=== PATIENT | male | born 1975 | race Caucasian/White ===

== ENCOUNTER 2020-12-03 12:46 | Outpatient (CLI) | payer MEDICARE, SELFPAY ==
--- NOTE | 2020-12-03 13:08 | MR_ITS ---
WS: [id number] MRI RIGHT KNEE HISTORY: PAIN IN RIGHT KNEE COMPARISON: None available. Anterior cruciate ligament: Mild increased signal in the ACL but no tear. Posterior cruciate ligament: Intact. Medial collateral ligament: Intact. Posterior lateral corner structures: Intact. Medial menisci: Horizontal tear extends to the superior articular surface involving the anterior horn . There is an additional more complex tear in the posterior horn involving the free edge and the supe rior articular surface. Tear and intrasubstance degeneration also extends towards the meniscal root. Lateral meniscus: Intact. Normal signal, size and shape. Extensor mechanism: Distal quadriceps tendon and patellar tendons are intact. Fluid and soft tissue: Moderate-sized suprapatellar joint effusion. No Eagle's cyst. Osseous and articular structures: Patellofemoral compartment: Normal. Medial compartment: Mild narrowing of the medial compartment. Fissuring along the weightbearing surfa nori of the cartilage. There is no full-thickness cartilage defect. No marrow edema. Lateral compartment: No significant narrowing. Cartilage is intact. No marrow edema or fracture. MR/MR knee RT wo con* [id number] IMPRESSION: 1. Horizontal tear extends to the superior articular surface anterior horn med ial meniscus. 2. Complex tear posterior horn medial meniscus involves the surfaces of the me niscus and the free edge and extends towards the meniscal root. 3. Moderate suprapatellar effusion. 4. No fracture or marrow edema.
== END 2020-12-03 12:47 | disposition home or self-care (01) ==
LOC: RADSHAW 12:54
PROVIDERS: PCP Family Medicine; Visit Provider Family Medicine
DX: M25.461 Effusion, right knee (principal); S83.231A Complex tear of medial meniscus, current injury, right knee, initial encounter; X58.XXXA Exposure to other specified factors, initial encounter
CPT/HCPCS: 73721

== ENCOUNTER 2022-06-08 09:49 | Inpatient (IN) | payer MEDICARE, SELFPAY ==
[2022-06-08] VITALS (106 sets, daily range): BP systolic 88–128; BP diastolic 58–96; PULSE 53–127; RESP 15–26; TEMP 36.1–36.7; O2SAT 89–97; BMI 24.1
--- NOTE | 2022-06-08 07:53 | XR_ITS ---
WS: [id number] Portable AP upright chest, 06/08/2022, 0807 hours Clinical Data: pna Comparison: Portable chest, today, 0101 hours Findings: No nodules, masses or effusions are seen. The heart is normal. The pulmonary vascularity is not increased. No pneumonia or pneumothorax is seen. There are patchy bilateral pulmonary opacities at both lung bases which probably represent atelectasis but could be pneumonia. The diaphragms are fl attened. The upper lobes are clear. The aortic arch shows tortuosity. There are monitor leads on the chest wall. XR/XR chest 1V portable [id number] Impression: 1. Patchy bilateral basilar pulmonary opacities which could represent atelectas is and/or pneumonia. 2. Hyperinflation
[2022-06-08] MEDS: morphine 4 mg/mL SDV 1 mL 2 MG IVP (08:43)
[2022-06-08] MEDS: FUROsemide 10 mg/mL SDV 10mL 60 MG IVP (08:43)
[2022-06-08 09:12] LABS: Hematocrit 43.2 % (42.0-52.0); Lymphocytes # 0.3 10^3/uL (0.8-4.8); Mean Corpuscular HGB Conc 32.4 g/dL (30.0-36.0); Mean Corpuscular Hemoglobin 29.8 pg (28.0-34.0); Mean Corpuscular Volume 91.9 fl (80-94); Mean Platelet Volume 9.7 fL (7.4-10.4); Monocytes # 0.1 10^3/uL (0.2-0.9); Monocytes % 1.9 %; Neutrophils # 5.25 10^3/uL (1.8-7.7); Neutrophils % 91.9 %; Nucleated Red Blood Cells % 0 %; Platelet Count 262 10^3/cmm (130-400); Red Cell Distribution Width 12.5 % (12.1-15.1); White Blood Count 5.7 10^3/uL (4.0-10.0)
[2022-06-08 09:24] LABS: Add Urine Microscopic? NO; Charge for UA Resulting for Rev
[2022-06-08 09:28] LABS: D Dimer 0.37 ug/mIFEU (0-0.59)
[2022-06-08] MEDS: budesonide 0.5 mg/2 mL Neb INHALATION ×2 (09:31→20:48)
[2022-06-08] MEDS: ipratropium-albuterol 3 mL Neb INHALATION ×2 (09:31→14:53)
[2022-06-08] MEDS: famotidine 20 mg/2 mL INJ IVP ×2 (09:41→19:58)
[2022-06-08] MEDS: ferrous gluconate 324 mg Tablet PO ×2 (09:41→17:16)
[2022-06-08] MEDS: benzonatate 100 mg Capsule PO ×3 (09:41→20:04)
[2022-06-08 09:42] LABS: Alanine Aminotransferase 331 U/L (0-41); Albumin Level 4.1 g/dL (3.5-5.2); Alkaline Phosphatase 66 U/L (40-130); Anion Gap 13.7 (5-19); Aspartate Amino Transferase 241 U/L (0-40); Blood Urea Nitrogen 14 mg/dL (6-20); Calcium 8.6 mg/dL (8.5-10.5); Carbon Dioxide 28 mmol/L (22-29); Chloride 98 mmol/L (98-107); Globulin 2.5 g/dL (1.3-4.6); Glomerular Filtration Rate 119.9 mL/min (90-130); Glucose 121 mg/dL (65-115); Iron 25 ug/dL (59-158); Osmolality Calculated 282 mOsm/kg (285-295); Percent Saturation 8.8 % (20-50); Potassium 4.7 mmol/L (3.5-5.1); Sodium 135 mmol/L (136-145); Total Bilirubin 0.3 mg/dL (0.15-1.2); Total Iron Binding Capacity 281 mcg/dl; Total Protein 6.6 g/dL (6.6-8.7); Unsaturated Iron Binding 256 ug/dL (112-347)
[2022-06-08 09:44] LABS: Procalcitonin 0.08 ng/mL (0-0.5)
[2022-06-08 09:48] LABS: Amphetamines Screen Urine Negative (Negative); Barbiturates Screen Urine Negative (Negative); Benzodiazepines Screen Urine Negative (Negative); Cocaine Screen Urine Negative (Negative); Opiate Screen Urine Positive (Negative); PCP Screen Urine Negative (Negative); THC Screen Urine Negative (Negative)
[2022-06-08 09:51] LABS: Bilirubin Urine Neg (Negative); Blood Urine Neg (Negative); Glucose Urine UA Norm (Normal); Ketones Urine 1+ (Negative); Leukocyte Esterase Urine Negative (Negative); Nitrate Urine Negative (Negative); Protein Urine Neg (Negative); Urine Appearance Clear (CLEAR); Urine Color Straw (Yellow); Urobilinogen Urine Norm (Negative); pH Urine 6 (5-7)
--- NOTE | 2022-06-08 09:53 | USCV_ITS ---
BarrettSachin wall Age: 47 Gender: M : 1975 Exam Date: 06/08/2022 10:08 Ordering Phys: Brendan King MD Technologist: Black Rocha [place] [facility] [place]: Congestive heart failure BP: 132 / 75 HR: Rhythm: Sinus Technical Quality: Technically difficult study MEASUREMENTS (Male / Female) Normal Values 2D ECHO IVC Diameter 0.6 cm M-MODE MV E Point Septal Separation 1.2 cm DOPPLER TR Peak Velocity 146.0 cm/s TR Peak Gradient 8.5 mmHg TV Peak E Velocity 84.0 cm/s Right Atrial Pressure 3.0 mmHg Pulmonary Artery Systolic Pressu 11.5 mmHg RV Acceleration Time 0.2 s FINDINGS Left Ventricle Normal left ventricular cavity size. Normal left ventricular systolic function. Left ankle ejection fraction grossly estimated at 55%. This study is inadequate for estimation of regional wall motion abnormality. Right Ventricle Probably normal right ventricular size and systolic function. Right Atrium Normal right atrial size. Left Atrium Left atrium not well visualized. Mitral Valve Grossly normal mitral valve. Aortic Valve Aortic valve not well visualized. Tricuspid Valve Structurally normal tricuspid valve. Pulmonic Valve Pulmonic valve not well visualized. Pericardium No pericardial effusion. Aorta Aorta not well visualized. IVC Inferior vena cava not visualized. CONCLUSIONS 1. This is a technically difficult study with no apical and very limited parasternal windows. 2. Normal left ventricular cavity size. Normal left ventricular systolic function. Left ankle ejection fraction grossly estimated at 55%. This study is inadequate for estimation of regional wall motion abnormality. 3. No prior similar studies to compare. Gabbie Moran MD (Electronically Signed) Final Date: 08 June 2022 16:16 S
--- NOTE | 2022-06-08 09:54 | PM.HP ---
Providers/Chief Complaint Admitting Physician: Pipe Jonas MD Primary Care Provider: Sachin Brown DO Chief Complaint: flu A , lung disease with hypoxia History of Present Illness Sachin Hyde is a 47 year old male with past medical history of chronic chemical pneumonitis leading to severe lung injury, COPD on 1 to 2 L at home, possible history of congestive heart failure though not documented in chart, history of stable angina pectoris who follows up with pulmonology as an outpatient was transferred from [facility] where he had presented for difficulty in breathing ongoing for last 2 days. As per the patient he went to [facility] on Enrique night because of difficulty in breathing and was sent home on nebulization treatment. As his breathing continued to get worse he went back to the ER yesterday. Patient has been getting out of bed gradually for the last 3 to 4 days. At baseline lives on 1 to 2 L of oxygen supplementation with saturation mostly in low to mid 90s. At [facility] patient was found to be fluid positive. He underwent CTA which ruled out pulmonary embolism. Blood work showed CBC and BMP at baseline. On examination patient was on 5 L nasal cannula, tachypneic, complaining of difficulty in breathing, tired appearing with blood pressures and mean more than 65. Edwards was placed and patient received IV Lasix after which he has had around 2 L of urine output. Review of Systems General: Reports: 10 or more systems reviewed and unremarkable except in HPI and below Const: Denies: fever(s), chills, body aches, change in appetite, change in weight, malaise, night sweats, diaphoresis, change in sleep pattern, daytime sleepiness or snoring Eyes: Denies: change in vision, blurry vision, photophobia, eye discomfort or eye discharge ENMT: Denies: throat pain, enlarged tonsils, hoarseness, mouth pain, oral sores, dry mouth, tinnitus, nasal congestion or post nasal drip Card: Denies: chest pain, palpitations, irregular heart rhythm, edema, swelling of feet/ankles, lightheadedness, syncope, pre-syncope, dyspnea on exertion, orthopnea, leg pain with exertion or acrocyanosis Resp: Denies: dyspnea, productive cough, non-productive cough, wheezing, stridor, pain on inspiration, change in phlegm color, hemoptysis or chest congestion GI: Denies: abdominal pain, nausea, vomiting, hematemesis, coffee ground emesis, dysphagia, heartburn, diarrhea, constipation, bloating, GI cramping, change in bowel habits, pain on defecation, hematochezia or melena : Denies: flank pain, difficulty urinating, dysuria, urinary frequency, urinary urgency, urinary hesitancy, urinary dribbling, difficulty starting urination, change in urine stream, nocturia or hematuria Musc: Denies: neck pain, back pain, extremity pain, joint pain, joint swelling, joint redness, joint stiffness or limited range of motion Neuro: Denies: headache(s), numbness in extremities, weakness in extremities, sensory changes, lack of coordination, difficulty walking, frequent falls, dizziness, vertigo, confusion, Slurred speech present, difficulty communicating thoughts or seizure-like activity Psych: Denies: anxiety, depression, mood swings, panic attacks, hopelessness or irritability Endo: Denies: polyuria, polydipsia, tired all the time, cold intolerance, excessive sweating, flushing or heat intolerance Luis Eduardo/Lymph: Denies: easy bruising or easy bleeding All/Imm: Denies: tongue swelling, facial swelling or acute wheezing Medications/Allergies Home Medications Medication Instructions Recorded Confirmed Last Taken Type nitroglycerin 0.4 mg sublingual 0.4 mg sublingual Q5M PRN Chest 09/13/19 06/08/22 Unknown History tablet Pain prednisone 5 mg tablet 5 mg PO DAILY 30 days #30 tabs 12/09/21 06/08/22 Unknown Rx tiotropium bromide 18 mcg capsule 1 cap inhalation DAILY 30 days #60 12/09/21 06/08/22 Unknown Rx with inhalation device (Spiriva inhalations with HandiHaler) albuterol sulfate 90 mcg/actuation 2 puff inhalation Q6H PRN 06/08/22 06/08/22 Unknown History aerosol inhaler Shortness Of Breath citalopram 20 mg tablet 20 mg PO DAILY 06/08/22 06/08/22 Unknown History roflumilast 500 mcg tablet 500 mcg PO DAILY 06/08/22 06/08/22 Unknown History Allergies Allergy/AdvReac Type Severity Reaction Status Date / Time No Known Allergies Allergy Verified 02/20/22 09:43 PFSH Acute PFSH: Medical History (Updated 12/27/22 @ 09:55 by Brendan King MD) Angina at rest Angina pectoris, unspecified Anxiety CAD (coronary artery disease) Centrilobular emphysema Chest pain Chronic chemical pneumonitis COPD (chronic obstructive pulmonary disease) Depression Diastolic dysfunction GERD (gastroesophageal reflux disease) H/O coronary angiogram HTN (hypertension) Hyperlipidemia Hypoxia Migraines RAJNI (obstructive sleep apnea) Seasonal allergies Syndrome X (cardiac) Family History Father , Age 62 Cancer Social History Smoking and tobacco status: former smoker Quit status (tobacco): has quit using tobacco Year quit tobacco: 2011 - 0.5 PPD x 6 Years Alcohol intake: current Alcohol intake frequency: holidays/special occasions only Lives independently: Yes Household members: spouse Marital status: Current occupational status: disabled Current occupational exposures/hazards: No 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 History of recent travel: No Current gender identity: Male Vitals/I&O/Wt Last Vital Signs Pulse 96 06/08/22 09:42 Resp 22 H 06/08/22 09:42 Pulse Ox 91 06/08/22 09:42 O2 Del Method 06/08/22 09:42 O2 Flow Rate 5 06/08/22 09:42 Weight last 48 hrs Weight 80.739 kg Physical Exam Narrative: General: In acute distress because of difficulty in breathing, tachypnea, using accessory muscles on 5 L nasal cannula, chronically sick appearing HEENT: PERRLA, pupils bilaterally equal and reactive Chest: Bronchial breath sounds b/l ,decreased air entry, with diffuse rhonchi all over the lung gary CVS: S1-S2 regular, no murmurs, no tachycardia, no gallops, no rubs Abdomen: Soft, nontender, no organomegaly, bowel sounds present, morbidly obese Neuro: No focal deficits, no facial deformity, AO x3, power 5/5 in all limbs Urinary Catheter Management: Edwards: Cath Placed During This Visit: yes Urinary Catheter Date of Insertion: 06/08/22 Urinary Catheter Time of Insertion: 09:20 Data 06/08/22 08:43 06/08/22 08:43 Micro: Microbiology 06/08/22 08:43 Blood Culture - Preliminary Blood SPECIMEN COLLECTED 06/08/22 08:43 Blood Culture - Preliminary Blood SPECIMEN COLLECTED A&P Assessment and plan (1) Acute and chronic respiratory failure with hypoxia: Secondary to COPD exacerbation in setting of influenza A in a patient with history of chronic chemical pneumonitis. Chest x-ray. Patient did have CT done in [facility] which ruled out PE. Check sputum culture, blood culture, procalcitonin, MRSA swab, urine Legionella, bacterial antigen. DuoNebs every 6 hour, budesonide twice daily. Solu-Medrol 60 mg IV every 6 hourly. 1 dose of IV mag 2 mg. Switch to high flow nasal cannula to reduce work of breathing. Patient gives history of possible congestive heart failure. Check echocardiogram. IV Lasix 40 mg one-time. Edwards catheter, strict input output charting, daily weights. Cannot rule out superimposed bacterial pneumonia. For now start patient on IV ceftriaxone and oral azithromycin. If MRSA comes back positive we will add vancomycin. (2) COPD (chronic obstructive pulmonary disease): (3) Influenza A: Aggressive pulmonary toilet. Incentive spirometry, flutter valve. Tamiflu 75 mg twice daily. (4) Chronic chemical pneumonitis: (5) CAD (coronary artery disease): Qualifiers: Associated angina: with unspecified form of angina Coronary Disease-Associated Artery/Lesion type: unspecified vessel or lesion type [place] vs. transplanted heart: [place] heart Qualified Code(s): I25.119 - Atherosclerotic heart disease of [place] coronary artery with unspecified angina pectoris (6) Anxiety: Morphine 1 mg every 2 hour as needed. Xanax 0.5 mg twice daily. We will try to hold off on adding any further anxiolytics or Precedex to avoid decreasing respiratory drive. Plan Code status: Discussed in detail with the patient. Discussed that given her severe lung injury unfortunately if patient ends up on ventilator it will be difficult for him to get off ventilator. Patient verbalized understanding. Full code. Protonix for PUD prophylaxis Lovenox for DVT prophylaxis. Critically sick. High risk for intubation. Attestations Medical Necessity Statement*: Admission for more than 2 midnights for management of acute on chronic hypoxic respiratory failure in setting of COPD exacerbation from fluid air in a patient with baseline chemical pneumonitis Critical Care Time: The high probability of a clinically significant, sudden or life threatening deterioration of the patient's [pulmonary] system(s) required my full and direct attention, intervention and personal management. The critical care time is as shown. 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 transplanted heart: [place] heart Anxiety F41.9
[2022-06-08 10:00] LABS: C Reactive Protein 24.2 mg/L (0.0-4.9); NT Pro B Type Natriuretic Pept 40 pg/mL (0-125); Thyroid Stimulating Hormone 0.28 uIU/mL (0.27-4.20); Vitamin B12 1107 pg/mL (232-1245)
[2022-06-08 10:00] LABS: Potassium, Radom Urine 15 mmol/L; Urine Random Chloride 110 mmol/L; Urine Random Sodium 106 mmol/L
[2022-06-08 10:25] LABS: Folate Level > 20.0 ng/mL (4.5-32.2)
[2022-06-08] MEDS: oseltamivir phosphate 75 mg Capsule PO ×2 (10:34→17:16)
[2022-06-08] MEDS: azithromycin 250 mg Tablet 500 MG PO (10:34)
[2022-06-08] MEDS: enoxaparin 40 mg/0.4 mL Syringe SUBCUT (10:35)
[2022-06-08] MEDS: cefTRIAXone 1,000 MG in sodium chloride 0.9% (plus) 50 ML 100 MG IV (10:35)
[2022-06-08] MEDS: magnesium sulfate premix 2 GM/50 ML PIGGYBACK IV (10:37)
--- NOTE | 2022-06-08 10:49 | PC.CHAP ---
Pastoral Care Encounter/Spiritual Assessment Type of Contact [] Declined earth science technical officer visit [] Patient/Family/Request visit [] Outpatient visit [] Follow-up visit [] Physician referral [] Code/Alert [x] Routine visit [] Staff referral [] Actively dying [] Patient sleeping [] Family support [] [] Out of room [] Palliative care [] [x] Receiving care in room [] Pre-surgical visit [] Trauma [] Long length of stay [x] ICU visit [] Other: Relational/Emotional Strength [] Patient feels connected with others/family/visitors/staff [] Distress [] Loneliness/isolation [] Abandonment Spirituality of Patient [] Person of Deidre [] Attends Zoroastrian of their [place] [] Believes in Prayer [] Reads Bible or Mosque materials [] There are Spiritual issues to be addressed Mold Swabber Interventions [x] Prayer [] Active listening [] Non-anxious presence [] Spiritual/emotional support [] Crisis/trauma care [] Spiritual counseling [] Bereavement support [] Provided bereavement packet [] Provided Bible/devotional materials [] Provided toy/stuffed animal, coloring book to patient or family member [] Provided Communion [] Anointing/[place] [] Salvation [x] Completed spiritual assessment [] Other: Impact on Illness or Injury [] Angry [] Fearful [] Anxious [] Often cries [] Exhaustion [] Unable to work [] Unable to attend denominational [] Unable to walk/stand [] Unable to read [] Unable to drive [] Unable to eat/drink [] Unable to sleep [] Unable to be with family [] Patient intubated [] Other: Summary Time spent with patient
[2022-06-08] MEDS: ALPRAZolam 0.5 mg Tablet PO ×2 (13:45→20:32)
[2022-06-08] MEDS: morphine 4 mg/mL SDV 1 mL 1 MG IVP ×3 (13:45→20:33)
[2022-06-08 14:35] LABS: Anion Gap 18.5 (5-19); Blood Urea Nitrogen 14 mg/dL (6-20); Calcium 8.7 mg/dL (8.5-10.5); Carbon Dioxide 28 mmol/L (22-29); Chloride 92 mmol/L (98-107); Glomerular Filtration Rate 119.9 mL/min (90-130); Glucose 124 mg/dL (65-115); Osmolality Calculated 280 mOsm/kg (285-295); Potassium 4.5 mmol/L (3.5-5.1); Sodium 134 mmol/L (136-145)
[2022-06-08] MEDS: ondansetron 2 mg/ML SDV 2 mL 4 MG IVP (15:25)
[2022-06-08] MEDS: docusate sodium 100 mg Capsule PO (17:16)
[2022-06-08] MEDS: ipratropium 0.5 mg/2.5 mL Neb INHALATION ×2 (20:47→23:33)
[2022-06-08] MEDS: levalbuterol 0.63 mg/3 mL Neb INHALATION ×2 (20:48→23:33)
[2022-06-09] VITALS (89 sets, daily range): BP systolic 62–133; BP diastolic 36–85; PULSE 52–93; RESP 14–27; TEMP 36.6; O2SAT 89–97
[2022-06-09] MEDS: morphine 4 mg/mL SDV 1 mL 1 MG IVP ×4 (00:08→21:06)
[2022-06-09 03:17] LABS: Estmated Average Glucose 105; Hemoglobin A1C 5.3 % (4.0-6.0)
[2022-06-09 03:25] LABS: Cholesterol 186 mg/dL (0-200); HDL Cholesterol 62 mg/dL (60-100); LDL Cholesterol Calculated 113 mg/dL (50-129); Magnesium 2.5 mg/dL (1.7-2.3); Phosphorus 4.5 mg/dL (2.5-4.5); Triglycerides 57 mg/dL (0-150); VLDL Cholestrol Calculation 11 mg/dL (0-30)
[2022-06-09] MEDS: ipratropium 0.5 mg/2.5 mL Neb INHALATION ×6 (04:23→23:50)
[2022-06-09] MEDS: levalbuterol 0.63 mg/3 mL Neb INHALATION ×6 (04:23→23:50)
--- NOTE | 2022-06-09 05:13 | PC.NURSE ---
Shift Note Frequent safety and comfort rounds continue. Orders and/or nursing care completed as indicated. Patient monitored for response to intervention and treatment(s). Education provided includes medications. Patient verbalized understanding of teaching. Patient had an uneventful shift, remains alert/oriented x4 on 5LNC. No wounds or skin issues noted at this time. Patient reported pain overnight-PRN medication administered please see MAR for detail. Edwards catheter drained 1000 mls of urine overnight. Will continue to monitor.
[2022-06-09] MEDS: roflumilast 500 mcg Tablet PO (08:00)
[2022-06-09] MEDS: azithromycin 250 mg Tablet 500 MG PO (08:00)
[2022-06-09] MEDS: benzonatate 100 mg Capsule PO ×3 (08:01→21:06)
[2022-06-09] MEDS: citalopram 20 mg Tablet PO (08:01)
[2022-06-09] MEDS: oseltamivir phosphate 75 mg Capsule PO ×2 (08:01→17:32)
[2022-06-09] MEDS: famotidine 20 mg/2 mL INJ IVP ×2 (08:02→21:04)
[2022-06-09] MEDS: ferrous gluconate 324 mg Tablet PO ×2 (08:02→17:32)
[2022-06-09] MEDS: ondansetron 2 mg/ML SDV 2 mL 4 MG IVP (08:46)
[2022-06-09] MEDS: budesonide 0.5 mg/2 mL Neb INHALATION ×2 (09:04→19:39)
[2022-06-09] MEDS: ALPRAZolam 0.5 mg Tablet PO (09:31)
[2022-06-09] MEDS: cefTRIAXone 1,000 MG in sodium chloride 0.9% (plus) 50 ML 100 MG IV (10:00)
[2022-06-09] MEDS: enoxaparin 40 mg/0.4 mL Syringe SUBCUT (10:00)
--- NOTE | 2022-06-09 10:06 | PC.CHAP ---
Pastoral Care Encounter/Spiritual Assessment Type of Contact [] Declined paver operator visit [] Patient/Family/Request visit [] Outpatient visit [] Follow-up visit [] Physician referral [] Code/Alert [x] Routine visit [] Staff referral [] Actively dying [] Patient sleeping [] Family support [] [] Out of room [] Palliative care [] [x] Receiving care in room [] Pre-surgical visit [] Trauma [] Long length of stay [x] ICU visit [xOther: setting up in bed Relational/Emotional Strength [] Patient feels connected with others/family/visitors/staff [] Distress [] Loneliness/isolation [] Abandonment Spirituality of Patient [] Person of Deidre [] Attends Christian of their [place] [] Believes in Prayer [] Reads Bible or Gnosticist materials [] There are Spiritual issues to be addressed Aircraft Maintenance Supervisor Interventions [x] Prayer [] Active listening [] Non-anxious presence [] Spiritual/emotional support [] Crisis/trauma care [] Spiritual counseling [] Bereavement support [] Provided bereavement packet [] Provided Bible/devotional materials [] Provided toy/stuffed animal, coloring book to patient or family member [] Provided Communion [] Anointing/[place] [] Salvation [x] Completed spiritual assessment [] Other: Impact on Illness or Injury [] Angry [] Fearful [] Anxious [] Often cries [] Exhaustion [] Unable to work [] Unable to attend scientology [] Unable to walk/stand [] Unable to read [] Unable to drive [] Unable to eat/drink [] Unable to sleep [] Unable to be with family [] Patient intubated [] Other: Summary Time spent with patient
--- NOTE | 2022-06-09 17:27 | PM.PN ---
Subjective Subjective: No complaints overnight. Today morning patient states he is feeling slightly better than yesterday. Seen with family at bedside. Denies any nausea, vomiting, headache. On examination early in the morning was on 4 L being weaned down to 2 L a day maintaining saturation more than 90%. Vitals/I&O/Wt Last Vital Signs Temp 97.0 F L 06/08/22 20:00 Pulse 58 L 06/09/22 17:00 Resp 14 06/09/22 17:00 BP 88/41 06/09/22 17:00 Pulse Ox 92 06/09/22 17:00 O2 Del Method 06/09/22 15:00 O2 Flow Rate 2 06/09/22 15:00 06/09/22 06/09/22 06/09/22 06:59 14:59 22:59 Intake Total 1150 / 1600 240 / 240 Output Total 750 / 4850 350 / 350 Balance 400 / -3250 -110 / -110 Weight last 48 hrs Weight 80.739 kg Physical Exam Narrative: General: Chronically sick appearing, no acute distress, less tachypneic today, pleasant, AOx3 HEENT: PERRLA, pupils bilaterally equal and reactive Chest: Bronchial breath sounds b/l ,decreased air entry, with diffuse rhonchi all over the lung gary CVS: S1-S2 regular, no murmurs, no tachycardia, no gallops, no rubs Abdomen: Soft, nontender, no organomegaly, bowel sounds present, morbidly obese Neuro: No focal deficits, no facial deformity, AO x3, power 5/5 in all limbs Urinary Catheter Management: Edwards: Cath Placed During This Visit: yes Reason for Continuing Indwelling Catheter: Accurate Measurement of Urinary Output in Critically Ill Patients Urinary Catheter Date of Insertion: 06/08/22 Urinary Catheter Time of Insertion: 09:20 Data 06/08/22 08:43 06/08/22 14:00 Micro: Microbiology 06/08/22 09:20 MRSA Culture - Final Nose 06/08/22 08:43 Blood Culture - Preliminary Blood NEGATIVE TO DATE 06/08/22 08:43 Blood Culture - Preliminary Blood NEGATIVE TO DATE A&P Assessment and plan (1) Acute and chronic respiratory failure with hypoxia: Secondary to COPD exacerbation in setting of influenza A in a patient with history of chronic chemical pneumonitis. CTA done in [facility] which ruled out PE. Urine Legionella, bacterial antigen, MRSA swab negative. Sputum culture pending. Continue with ipratropium, Xopenex every 4 hours, budesonide twice daily. Solu-Medrol 60 mg IV every 6 hourly. Will start weaning with a last 24 hours depending on clinical picture. Switch to high flow nasal cannula to reduce work of breathing. Echocardiogram results appreciated. EF of 50 to 55% without diastolic dysfunction. DC Edwards. Cannot rule out superimposed bacterial pneumonia. For now start patient on IV ceftriaxone and oral azithromycin. (2) COPD (chronic obstructive pulmonary disease): (3) Influenza A: Aggressive pulmonary toilet. Incentive spirometry, flutter valve. Tamiflu 75 mg twice daily. (4) Chronic chemical pneumonitis: (5) CAD (coronary artery disease): Appreciate A1c and lipid panel. Qualifiers: Coronary Disease-Associated Artery/Lesion type: unspecified vessel or lesion type [place] vs. transplanted heart: [place] heart Associated angina: with unspecified form of angina Qualified Code(s): I25.119 - Atherosclerotic heart disease of [place] coronary artery with unspecified angina pectoris (6) Anxiety: Morphine 1 mg every 2 hour as needed. Xanax 0.5 mg twice daily. We will try to hold off on adding any further anxiolytics or Precedex to avoid decreasing respiratory drive. Plan Code status: Discussed in detail with the patient. Discussed that given her severe lung injury unfortunately if patient ends up on ventilator it will be difficult for him to get off ventilator. Patient verbalized understanding. Full code. Protonix for PUD prophylaxis Lovenox for DVT prophylaxis. Critically sick. 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 transplanted heart: [place] heart Associated angina: with unspecified form of angina Anxiety F41.9
[2022-06-09] MEDS: guaiFENesin 600 mg Tablet PO (17:42)
[2022-06-10] VITALS (18 sets, daily range): BP systolic 95–117; BP diastolic 57–87; PULSE 54–85; RESP 15–28; TEMP 36.4–36.5; O2SAT 90–96
[2022-06-10 02:24] LABS: Hematocrit 41.9 % (42.0-52.0); Hemoglobin 14.1 g/dL (11.7-16.6); Mean Corpuscular HGB Conc 33.7 g/dL (30.0-36.0); Mean Corpuscular Hemoglobin 30.1 pg (28.0-34.0); Mean Corpuscular Volume 89.5 fl (80-94); Mean Platelet Volume 9.9 fL (7.4-10.4); Platelet Count 302 10^3/cmm (130-400); Red Blood Count 4.68 10^6/uL (4.1-5.3); Red Cell Distribution Width 12.1 % (12.1-15.1); White Blood Count 7.9 10^3/uL (4.0-10.0)
[2022-06-10 02:36] LABS: Alanine Aminotransferase 192 U/L (0-41); Albumin Level 4.2 g/dL (3.5-5.2); Alkaline Phosphatase 56 U/L (40-130); Anion Gap 13.2 (5-19); Aspartate Amino Transferase 61 U/L (0-40); Blood Urea Nitrogen 25 mg/dL (6-20); Calcium 8.8 mg/dL (8.5-10.5); Carbon Dioxide 32 mmol/L (22-29); Chloride 95 mmol/L (98-107); Globulin 2.2 g/dL (1.3-4.6); Glomerular Filtration Rate 102.7 mL/min (90-130); Glucose 132 mg/dL (65-115); Osmolality Calculated 286 mOsm/kg (285-295); Potassium 5.2 mmol/L (3.5-5.1); Sodium 135 mmol/L (136-145); Total Bilirubin 0.4 mg/dL (0.15-1.2); Total Protein 6.4 g/dL (6.6-8.7)
[2022-06-10 03:27] LABS: Absolute Segmented Neutrophil 6.2 10/cmm (1.6-7.1); Eosinophils 0 %; Lymphocytes 12 %; Lymphocytes Absolute 1.3 10^3/cmm (1.2-3.4); Monocytes Absolute 0.4 10^3/cmm (0.1-0.6); Segmented Neutrophils 79 %; Total Cells Counted 100 (0-100)
[2022-06-10 03:28] LABS: Absolute Neutrophil 6.2 10^3/cmm (1.4-6.5); Platelet Estimate Normal (Normal)
[2022-06-10] MEDS: morphine 4 mg/mL SDV 1 mL 1 MG IVP ×3 (04:16→21:41)
[2022-06-10] MEDS: ipratropium 0.5 mg/2.5 mL Neb INHALATION ×4 (04:43→23:44)
[2022-06-10] MEDS: levalbuterol 0.63 mg/3 mL Neb INHALATION ×4 (04:43→23:45)
[2022-06-10] MEDS: azithromycin 250 mg Tablet 500 MG PO (07:58)
[2022-06-10] MEDS: guaiFENesin 600 mg Tablet PO ×2 (07:58→17:12)
[2022-06-10] MEDS: oseltamivir phosphate 75 mg Capsule PO ×2 (07:58→17:12)
[2022-06-10] MEDS: benzonatate 100 mg Capsule PO ×3 (07:59→19:57)
[2022-06-10] MEDS: citalopram 20 mg Tablet PO (07:59)
[2022-06-10] MEDS: roflumilast 500 mcg Tablet PO (07:59)
[2022-06-10] MEDS: ferrous gluconate 324 mg Tablet PO ×2 (07:59→17:12)
[2022-06-10] MEDS: docusate sodium 100 mg Capsule PO ×2 (07:59→17:12)
[2022-06-10] MEDS: famotidine 20 mg/2 mL INJ IVP ×2 (08:00→19:51)
[2022-06-10] MEDS: budesonide 0.5 mg/2 mL Neb INHALATION ×2 (08:25→19:46)
[2022-06-10] MEDS: ALPRAZolam 0.5 mg Tablet PO ×2 (09:11→19:55)
[2022-06-10] MEDS: ondansetron 2 mg/ML SDV 2 mL 4 MG IVP (09:44)
[2022-06-10] MEDS: enoxaparin 40 mg/0.4 mL Syringe SUBCUT (11:06)
[2022-06-10] MEDS: cefTRIAXone 1,000 MG in sodium chloride 0.9% (plus) 50 ML 100 MG IV (11:06)
[2022-06-10 11:44] LABS: Anion Gap 13.5 (5-19); Blood Urea Nitrogen 24 mg/dL (6-20); Calcium 9.1 mg/dL (8.5-10.5); Carbon Dioxide 33 mmol/L (22-29); Chloride 93 mmol/L (98-107); Glomerular Filtration Rate 102.7 mL/min (90-130); Glucose 133 mg/dL (65-115); Osmolality Calculated 286 mOsm/kg (285-295); Potassium 4.5 mmol/L (3.5-5.1); Sodium 135 mmol/L (136-145)
--- NOTE | 2022-06-10 17:58 | P.PN_ITS ---
Subjective Subjective: No acute distress overnight. Patient has remained hemodynamically stable and afebrile. Today morning on examination patient is on 2 L nasal cannula oxygen supplementation. Transiently had to increase up to 4 L after breathing treatment but turned out again during the day. Vitals/I&O/Wt Last Vital Signs Temp 97.7 F 06/10/22 04:20 Pulse 74 06/10/22 17:07 Resp 15 06/10/22 17:07 BP 99/57 06/10/22 17:07 Pulse Ox 93 06/10/22 17:07 O2 Del Method 06/10/22 15:41 O2 Flow Rate 2 06/10/22 15:41 06/10/22 06/10/22 06/10/22 06:59 14:59 22:59 Intake Total 120 / 120 Output Total 400 / 400 Balance -280 / -280 Weight last 48 hrs Weight 76.799 kg Physical Exam Narrative: General: Chronically sick appearing, no acute distress, less tachypneic today, pleasant, AOx3 HEENT: PERRLA, pupils bilaterally equal and reactive Chest: Bronchial breath sounds b/l ,decreased air entry, with diffuse rhonchi all over the lung gary CVS: S1-S2 regular, no murmurs, no tachycardia, no gallops, no rubs Abdomen: Soft, nontender, no organomegaly, bowel sounds present, morbidly obese Neuro: No focal deficits, no facial deformity, AO x3, power 5/5 in all limbs Urinary Catheter Management: Edwards: Cath Placed During This Visit: yes, but has since been removed by the nurse Reason for Continuing Indwelling Catheter: Accurate Measurement of Urinary Output in Critically Ill Patients Urinary Catheter Date of Insertion: 06/08/22 Urinary Catheter Time of Insertion: 09:20 Date Urinary Catheter Removed: 06/09/22 Time Urinary Catheter Discontinued: 15:00 Data 06/10/22 01:44 06/10/22 11:22 Micro: Microbiology 06/08/22 09:20 MRSA Culture - Final Nose A&P Assessment and plan (1) Acute and chronic respiratory failure with hypoxia: Secondary to COPD exacerbation in setting of influenza A in a patient with history of chronic chemical pneumonitis. CTA done in [facility] which ruled out PE. Urine Legionella, bacterial antigen, MRSA swab negative. Sputum culture pen ding. Continue with ipratropium, Xopenex every 4 hours, budesonide twice daily. Solu-Medrol 60 mg IV every 6 hourly. Will start weaning with a last 24 hours depending on clinical picture. Switch to high flow nasal cannula to reduce work of breathing. Echocardiogram results appreciated. EF of 50 to 55% without diastolic dysfunction. BIB Edwards. Cannot rule out superimposed bacterial pneumonia. For now start patient on IV ceftriaxone and oral azithromycin. (2) COPD (chronic obstructive pulmonary disease): (3) Influenza A: Aggressive pulmonary toilet. Incentive spirometry, flutter valve. Tamiflu 75 mg twice daily. (4) Chronic chemical pneumonitis: (5) CAD (coronary artery disease): Appreciate A1c and lipid panel. Qualifiers: Coronary Disease-Associated Artery/Lesion type: unspecified vessel or lesion type [place] vs. transplanted heart: [place] heart Associated angina: with unspecified form of angina Qualified Code(s): I25.119 - Atherosclerotic heart disease of [place] coronary artery with unspecified angina pectoris (6) Anxiety: Morphine 1 mg every 2 hour as needed. Xanax 0.5 mg twice daily. We will try to hold off on adding any further anxiolytics or Precedex to avoid decreasing respiratory drive. Plan Code status: Discussed in detail with the patient. Discussed that given her severe lung injury unfortunately if patient ends up on ventilator it will be difficult for him to get off ventilator. Patient verbalized understanding. Full code. Protonix for PUD prophylaxis Lovenox for DVT prophylaxis. Critically sick. Plan for the day: Continue with nebulization treatment with IV antibiotics. Wean down Solu-Medrol to 60 mg every 8 hourly. We will continue to wean within next 24 hours. Follow-up blood culture. Sputum culture still pending. Transfer out of ICU to [facility]. Out of bed to chair. Continue mechanical soft diet. 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 transplanted heart: [place] heart Associated angina: with unspecified form of angina Anxiety F41.9
[2022-06-10 19:49] LABS: Glucose Point of Care 120 mg/dL (70-110)
[2022-06-11] VITALS (15 sets, daily range): BP systolic 100–114; BP diastolic 62–65; PULSE 53–73; RESP 15–19; TEMP 36.4–36.7; O2SAT 93–95; BMI 22.1
[2022-06-11] MEDS: ipratropium 0.5 mg/2.5 mL Neb INHALATION ×5 (04:33→23:48)
[2022-06-11] MEDS: levalbuterol 0.63 mg/3 mL Neb INHALATION ×5 (04:33→23:48)
[2022-06-11] MEDS: morphine 4 mg/mL SDV 1 mL 1 MG IVP ×2 (04:47→21:33)
[2022-06-11 04:49] LABS: Hematocrit 41.9 % (42.0-52.0); Hemoglobin 13.9 g/dL (11.7-16.6); Lymphocytes % 11.3 %; Mean Corpuscular HGB Conc 33.2 g/dL (30.0-36.0); Mean Corpuscular Hemoglobin 29.4 pg (28.0-34.0); Mean Corpuscular Volume 88.8 fl (80-94); Monocytes # 0.4 10^3/uL (0.2-0.9); Monocytes % 4.5 %; Neutrophils # 7.49 10^3/uL (1.8-7.7); Neutrophils % 83.9 %; Nucleated Red Blood Cells % 0 %; Platelet Count 295 10^3/cmm (130-400); Red Blood Count 4.72 10^6/uL (4.1-5.3); Red Cell Distribution Width 11.9 % (12.1-15.1); White Blood Count 8.9 10^3/uL (4.0-10.0)
[2022-06-11 05:19] LABS: Alanine Aminotransferase 128 U/L (0-41); Albumin Level 3.9 g/dL (3.5-5.2); Alkaline Phosphatase 54 U/L (40-130); Anion Gap 10.9 (5-19); Aspartate Amino Transferase 27 U/L (0-40); Blood Urea Nitrogen 29 mg/dL (6-20); Calcium 8.9 mg/dL (8.5-10.5); Carbon Dioxide 32 mmol/L (22-29); Chloride 95 mmol/L (98-107); Glomerular Filtration Rate 119.9 mL/min (90-130); Glucose 125 mg/dL (65-115); Osmolality Calculated 283 mOsm/kg (285-295); Potassium 4.9 mmol/L (3.5-5.1); Sodium 133 mmol/L (136-145); Total Bilirubin 0.5 mg/dL (0.15-1.2); Total Protein 5.9 g/dL (6.6-8.7)
[2022-06-11] MEDS: budesonide 0.5 mg/2 mL Neb INHALATION ×2 (08:25→23:53)
[2022-06-11] MEDS: benzonatate 100 mg Capsule PO ×3 (09:00→21:10)
[2022-06-11] MEDS: azithromycin 250 mg Tablet 500 MG PO (09:00)
[2022-06-11] MEDS: guaiFENesin 600 mg Tablet PO ×2 (09:00→17:13)
[2022-06-11] MEDS: docusate sodium 100 mg Capsule PO ×2 (09:00→17:13)
[2022-06-11] MEDS: oseltamivir phosphate 75 mg Capsule PO ×2 (09:00→17:13)
[2022-06-11] MEDS: roflumilast 500 mcg Tablet PO (09:00)
[2022-06-11] MEDS: citalopram 20 mg Tablet PO (09:00)
[2022-06-11] MEDS: ferrous gluconate 324 mg Tablet PO ×2 (09:00→17:13)
[2022-06-11] MEDS: ALPRAZolam 0.5 mg Tablet PO ×2 (09:01→17:13)
[2022-06-11] MEDS: famotidine 20 mg/2 mL INJ IVP ×2 (09:01→20:04)
[2022-06-11] MEDS: ondansetron 2 mg/ML SDV 2 mL 4 MG IVP ×2 (09:57→15:53)
--- NOTE | 2022-06-11 10:17 | PC.SOCIAL ---
IMM update IMM updated with patient. Verbalized an understanding. Initialled, dated, timed, and placed in chart.
[2022-06-11] MEDS: enoxaparin 40 mg/0.4 mL Syringe SUBCUT (10:51)
[2022-06-11] MEDS: cefTRIAXone 1,000 MG in sodium chloride 0.9% (plus) 50 ML 100 MG IV (10:51)
--- NOTE | 2022-06-11 14:50 | P.PN_ITS ---
Subjective Subjective: No acute events overnight. Patient denies any nausea, vomiting, headache. Today morning examination laying comfortably in bed on 2 L oxygen supplementation. Seen on [facility]. States feeling better but tired. Vitals/I&O/Wt Last Vital Signs Temp 97.9 F 06/11/22 11:51 Pulse 69 06/11/22 11:51 Resp 15 06/11/22 11:51 BP 104/63 06/11/22 11:51 Pulse Ox 95 06/11/22 11:51 O2 Del Method 06/11/22 11:51 O2 Flow Rate 3 06/11/22 11:40 06/10/22 06/11/22 06/11/22 22:59 06:59 14:59 Intake Total 50 / 170 150 / 320 170 / 170 Output Total 650 / 1050 Balance -600 / -880 150 / -730 170 / 170 Weight last 48 hrs Weight 74.021 kg Weight 74.021 kg Weight 76.799 kg Physical Exam Narrative: General: Chronically sick appearing, no acute distress, less tachypneic today, pleasant, AOx3 HEENT: PERRLA, pupils bilaterally equal and reactive Chest: Bronchial breath sounds b/l ,decreased air entry, with diffuse rhonchi all over the lung gary CVS: S1-S2 regular, no murmurs, no tachycardia, no gallops, no rubs Abdomen: Soft, nontender, no organomegaly, bowel sounds present, morbidly obese Neuro: No focal deficits, no facial deformity, AO x3, power 5/5 in all limbs Urinary Catheter Management: Edwards: Cath Placed During This Visit: yes, but has since been removed by the nurse Reason for Continuing Indwelling Catheter: Accurate Measurement of Urinary Output in Critically Ill Patients Urinary Catheter Date of Insertion: 06/08/22 Urinary Catheter Time of Insertion: 09:20 Date Urinary Catheter Removed: 06/09/22 Time Urinary Catheter Discontinued: 15:00 Data 06/11/22 04:16 06/11/22 04:16 A&P Assessment and plan (1) Acute and chronic respiratory failure with hypoxia: Secondary to COPD exacerbation in setting of influenza A in a patient with history of chronic chemical pneumonitis. CTA done in [facility] which ruled out PE. Urine Legionella, bacterial antigen, MRSA swab negative. Sputum culture pending. Continue with ipratropium, Xopenex every 4 hours, budesonide twice daily. Solu-Medrol 60 mg IV every 6 hourly. Will start weaning with a last 24 hours depending on clinical picture. Switch to high flow nasal cannula to reduce work of breathing. Echocardiogram results appreciated. EF of 50 to 55% without diastolic dysfunction. DC Edwards. Cannot rule out superimposed bacterial pneumonia. For now start patient on IV ceftriaxone and oral azithromycin. (2) COPD (chronic obstructive pulmonary disease): (3) Influenza A: Aggressive pulmonary toilet. Incentive spirometry, flutter valve. Tamiflu 75 mg twice daily. (4) Chronic chemical pneumonitis: (5) CAD (coronary artery disease): Appreciate A1c and lipid panel. Qualifiers: Coronary Disease-Associated Artery/Lesion type: unspecified vessel or lesion type [place] vs. transplanted heart: [place] heart Associated angina: with unspecified form of angina Qualified Code(s): I25.119 - Atherosclerotic heart disease of [place] coronary artery with unspecified angina pectoris (6) Anxiety: Morphine 1 mg every 2 hour as needed. Xanax 0.5 mg twice daily. We will try to hold off on adding any further anxiolytics or Precedex to avoid decreasing respiratory drive. Plan Code status: Discussed in detail with the patient. Discussed that given her severe lung injury unfortunately if patient ends up on ventilator it will be difficult for him to get off ventilator. Patient verbalized understanding. Full code. Protonix for PUD prophylaxis Lovenox for DVT prophylaxis. Critically sick. Plan for the day: Continue with nebulization treatment with IV antibiotics. Wean down Solu-Medrol further to 60 mg every 12. Follow-up cultures. Continue mechanical soft diet. Discharge planning: If continues to do well we will plan to discharge within next 24 hours back home on oxygen and oral antibiotics. 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 transplanted heart: [place] heart Associated angina: with unspecified form of angina Anxiety F41.9
[2022-06-12] VITALS (15 sets, daily range): BP systolic 98–111; BP diastolic 58–66; PULSE 53–73; RESP 16–20; TEMP 36.4–36.7; O2SAT 87–97
--- NOTE | 2022-06-12 00:31 | PC.NURSE ---
Nurse notified of last vitals
[2022-06-12] MEDS: ALPRAZolam 0.5 mg Tablet PO ×3 (00:42→20:28)
[2022-06-12] MEDS: budesonide 0.5 mg/2 mL Neb INHALATION (08:20)
[2022-06-12] MEDS: ipratropium 0.5 mg/2.5 mL Neb INHALATION ×3 (08:20→15:31)
[2022-06-12] MEDS: levalbuterol 0.63 mg/3 mL Neb INHALATION ×4 (08:21→16:00)
[2022-06-12] MEDS: famotidine 20 mg/2 mL INJ IVP ×2 (09:44→21:10)
[2022-06-12] MEDS: oseltamivir phosphate 75 mg Capsule PO ×2 (09:44→18:04)
[2022-06-12] MEDS: docusate sodium 100 mg Capsule PO ×2 (09:44→18:04)
[2022-06-12] MEDS: citalopram 20 mg Tablet PO (09:44)
[2022-06-12] MEDS: guaiFENesin 600 mg Tablet PO ×2 (09:44→18:04)
[2022-06-12] MEDS: azithromycin 250 mg Tablet 500 MG PO (09:45)
[2022-06-12] MEDS: benzonatate 100 mg Capsule PO ×3 (09:45→20:28)
[2022-06-12] MEDS: ferrous gluconate 324 mg Tablet PO ×2 (09:45→18:04)
[2022-06-12] MEDS: roflumilast 500 mcg Tablet PO (09:45)
[2022-06-12] MEDS: cefTRIAXone 1,000 MG in sodium chloride 0.9% (plus) 50 ML 100 MG IV (10:59)
[2022-06-12] MEDS: enoxaparin 40 mg/0.4 mL Syringe SUBCUT (10:59)
--- NOTE | 2022-06-12 15:38 | PM.PN ---
Subjective Subjective: No acute events. Doing better. Continue to improve hemoglobin on 3 to 4 L at rest saturating more than 90%. States feeling better. Vitals/I&O/Wt Last Vital Signs Temp 98.1 F 06/12/22 12:00 Pulse 65 06/12/22 15:33 Resp 18 06/12/22 15:33 BP 111/66 06/12/22 12:00 Pulse Ox 94 06/12/22 15:33 O2 Del Method 06/12/22 15:33 O2 Flow Rate 4 06/12/22 15:33 06/12/22 06/12/22 06/12/22 06:59 14:59 22:59 Intake Total 240 / 770 360 / 360 Output Total 150 / 150 Balance 90 / 620 360 / 360 Weight last 48 hrs Weight 75.705 kg Weight 74.021 kg Weight 74.021 kg Physical Exam Narrative: General: Chronically sick appearing, no acute distress, less tachypneic today, pleasant, AOx3 HEENT: PERRLA, pupils bilaterally equal and reactive Chest: Bronchial breath sounds b/l ,decreased air entry, with diffuse rhonchi all over the lung gary CVS: S1-S2 regular, no murmurs, no tachycardia, no gallops, no rubs Abdomen: Soft, nontender, no organomegaly, bowel sounds present, morbidly obese Neuro: No focal deficits, no facial deformity, AO x3, power 5/5 in all limbs Urinary Catheter Management: Edwards: Cath Placed During This Visit: yes, but has since been removed by the nurse Reason for Continuing Indwelling Catheter: Accurate Measurement of Urinary Output in Critically Ill Patients Urinary Catheter Date of Insertion: 06/08/22 Urinary Catheter Time of Insertion: 09:20 Date Urinary Catheter Removed: 06/09/22 Time Urinary Catheter Discontinued: 15:00 Data 06/11/22 04:16 06/11/22 04:16 A&P Assessment and plan (1) Acute and chronic respiratory failure with hypoxia: Secondary to COPD exacerbation in setting of influenza A in a patient with history of chronic chemical pneumonitis. CTA done in [facility] which ruled out PE. Urine Legionella, bacterial antigen, MRSA swab negative. Sputum culture pending. Continue with ipratropium, Xopenex every 4 hours, budesonide twice daily. Solu-Medrol 60 mg IV every 6 hourly. Will start weaning with a last 24 hours depending on clinical picture. Switch to high flow nasal cannula to reduce work of breathing. Echocardiogram results appreciated. EF of 50 to 55% without diastolic dysfunction. DC Edwards. Cannot rule out superimposed bacterial pneumonia. For now start patient on IV ceftriaxone and oral azithromycin. (2) COPD (chronic obstructive pulmonary disease): (3) Influenza A: Aggressive pulmonary toilet. Incentive spirometry, flutter valve. Tamiflu 75 mg twice daily. (4) Chronic chemical pneumonitis: (5) CAD (coronary artery disease): Appreciate A1c and lipid panel. Qualifiers: Coronary Disease-Associated Artery/Lesion type: unspecified vessel or lesion type [place] vs. transplanted heart: [place] heart Associated angina: with unspecified form of angina Qualified Code(s): I25.119 - Atherosclerotic heart disease of [place] coronary artery with unspecified angina pectoris (6) Anxiety: Morphine 1 mg every 2 hour as needed. Xanax 0.5 mg twice daily. We will try to hold off on adding any further anxiolytics or Precedex to avoid decreasing respiratory drive. Plan Code status: Discussed in detail with the patient. Discussed that given her severe lung injury unfortunately if patient ends up on ventilator it will be difficult for him to get off ventilator. Patient verbalized understanding. Full code. Protonix for PUD prophylaxis Lovenox for DVT prophylaxis. Critically sick. Plan for the day: Continue with nebulization treatment with IV antibiotics. Wean down Solu-Medrol further to 60 mg daily. Continue with nebulization treatment. Follow-up cultures. Continue mechanical soft diet. Home O2 evaluation. Plan to discharge in next 24 hours on oral steroids if he does well on daily IV steroids on oral antibiotic and Tamiflu for 5 more days. Discharge planning: If continues to do well we will plan to discharge within next 24 hours back home on oxygen and oral antibiotics. 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 transplanted heart: [place] heart Associated angina: with unspecified form of angina Anxiety F41.9
[2022-06-12] MEDS: acetaminophen 325 mg Tablet 650 MG PO (15:59)
[2022-06-12] MEDS: morphine 4 mg/mL SDV 1 mL 1 MG IVP (18:09)
[2022-06-12] MEDS: ondansetron 2 mg/ML SDV 2 mL 4 MG IVP (18:11)
[2022-06-13] VITALS (10 sets, daily range): BP systolic 91–102; BP diastolic 55–60; PULSE 50–88; RESP 16–22; TEMP 36.4–36.6; O2SAT 93–96
[2022-06-13] MEDS: ipratropium 0.5 mg/2.5 mL Neb INHALATION ×3 (00:02→08:05)
[2022-06-13] MEDS: levalbuterol 0.63 mg/3 mL Neb INHALATION ×3 (00:02→08:05)
[2022-06-13 05:29] LABS: Basophils % 0.1 %; Eosinophils # 0.1 10^3/uL (0.0-0.8); Eosinophils % 0.7 %; Hematocrit 41.8 % (42.0-52.0); Hemoglobin 13.8 g/dL (11.7-16.6); Lymphocytes % 34.7 %; Mean Corpuscular Hemoglobin 29.7 pg (28.0-34.0); Mean Corpuscular Volume 89.9 fl (80-94); Mean Platelet Volume 9.6 fL (7.4-10.4); Monocytes % 11.9 %; Neutrophils # 4.47 10^3/uL (1.8-7.7); Nucleated Red Blood Cells % 0 %; Platelet Count 314 10^3/cmm (130-400); Red Blood Count 4.65 10^6/uL (4.1-5.3); Red Cell Distribution Width 11.9 % (12.1-15.1); White Blood Count 8.6 10^3/uL (4.0-10.0)
[2022-06-13 05:46] LABS: Alanine Aminotransferase 67 U/L (0-41); Albumin Level 3.7 g/dL (3.5-5.2); Alkaline Phosphatase 48 U/L (40-130); Aspartate Amino Transferase 15 U/L (0-40); Blood Urea Nitrogen 27 mg/dL (6-20); Calcium 8.2 mg/dL (8.5-10.5); Carbon Dioxide 32 mmol/L (22-29); Globulin 1.7 g/dL (1.3-4.6); Glomerular Filtration Rate 102.7 mL/min (90-130); Glucose 86 mg/dL (65-115); Total Bilirubin 0.7 mg/dL (0.15-1.2); Total Protein 5.4 g/dL (6.6-8.7)
[2022-06-13 06:35] LABS: Anion Gap 8.8 (5-19); Chloride 100 mmol/L (98-107); Osmolality Calculated 288 mOsm/kg (285-295); Potassium 3.8 mmol/L (3.5-5.1); Sodium 137 mmol/L (136-145)
[2022-06-13] MEDS: budesonide 0.5 mg/2 mL Neb INHALATION (08:04)
[2022-06-13] MEDS: roflumilast 500 mcg Tablet PO (09:39)
--- NOTE | 2022-06-13 09:39 | PC.SOCIAL ---
IMM update IMM updated with patient. Verbalized an understanding. Initialled, dated, timed, and placed in chart.
[2022-06-13] MEDS: ferrous gluconate 324 mg Tablet PO (09:40)
[2022-06-13] MEDS: citalopram 20 mg Tablet PO (09:40)
[2022-06-13] MEDS: azithromycin 250 mg Tablet 500 MG PO (09:40)
[2022-06-13] MEDS: benzonatate 100 mg Capsule PO (09:40)
[2022-06-13] MEDS: famotidine 20 mg/2 mL INJ IVP (09:40)
[2022-06-13] MEDS: oseltamivir phosphate 75 mg Capsule PO (09:40)
[2022-06-13] MEDS: guaiFENesin 600 mg Tablet PO (09:40)
[2022-06-13] MEDS: docusate sodium 100 mg Capsule PO (09:40)
--- NOTE | 2022-06-13 10:03 | P.DS_ITS ---
Discharge Providers Date of Admission: 06/08/22 09:49 Date of Discharge: June 13, 2022 Attending Provider at Admission: Pipe Jonas MD Attending Provider at Discharge: Brendan King MD Primary Care Provider: Sachin Brown DO Diagnoses at Discharge Discharge Diagnosis (1) Acute and chronic respiratory failure with hypoxia: Status: Acute (2) COPD (chronic obstructive pulmonary disease): Status: Acute (3) Influenza A: Status: Acute (4) Chronic chemical pneumonitis: Status: Acute (5) CAD (coronary artery disease): Status: Acute Qualifiers: Associated angina: with unspecified form of angina Coronary Disease- Associated Artery/Lesion type: unspecified vessel or lesion type [place] vs. tra nsplanted heart: iliamna heart Qualified Code(s): I25.119 - Atherosclerotic heart disease of [place] coronary artery with unspecified angina pectoris (6) Anxiety: Status: Acute Reason for Visit Reason for Visit: flu A , lung disease with hypoxia Hospital Course Hospital Course Sachin Hyde is a 47 year old male with past medical history of chronic chemical pneumonitis leading to severe lung injury, COPD on 1 to 2 L at home, possible history of congestive heart failure though not documented in chart, history of stable angina pectoris who follows up with pulmonology as an ou tpatient was transferred from [facility] where he had presented for difficulty in breathing ongoing for last 2 days.? As per the patient he went to [facility] on [place] night because of difficulty in breathing and was sent home on nebulization treatment.? As his breathing continued to get worse he went back to the ER yesterday.? Patient has been getting out of bed gradually for the last 3 to 4 days.? At baseline lives on 1 to 2 L of oxygen supplementation with saturation mostly in low to mid 90s. At [facility] patient was found to be fluid positive.? He underwent CTA which ruled out pulmonary embolism.? Blood work showed CBC and BMP at baseline. On examination patient was on 5 L nasal cannula, tachypneic, complaining of difficulty in breathing, tired appearing with blood pressures and mean more than 65.? Edwards was placed and patient received IV Lasix after which he has had around 2 L of urine output. Patient admitted to hospital further evaluation and management of COPD exacerbation secondary to fluid in setting of history of chronic chemical pneumonitis. He was started on empiric treatment with nebulizers, IV steroids and empiric antibiotics. He showed continued improvement and has been on 2 to 3 L of oxygen supplementation for last few days as IV steroids have been weaned down. He has been discharged hemodynamically stable condition on oral steroid taper with nebulizers after home O2 evaluation with advised to follow-up with a primary care provider within next 1 week. He is to take Augmentin and levofloxacin for 5 more days. Physical Exam Narrative: General: Chronically sick appearing, no acute distress, less tachypneic today, pleasant, AOx3 HEENT: PERRLA, pupils bilaterally equal and reactive Chest: Bronchial breath sounds b/l ,decreased air entry, with diffuse rhonchi all over the lung gary CVS: S1-S2 regular, no murmurs, no tachycardia, no gallops, no rubs Abdomen: Soft, nontender, no organomegaly, bowel sounds present, morbidly obese Neuro: No focal deficits, no facial deformity, AO x3, power 5/5 in all limbs Urinary Catheter Management: Edwards: Cath Placed During This Visit: yes, but has since been removed by the nurse Reason for Continuing Indwelling Catheter: Accurate Measurement of Urinary Output in Critically Ill Patients Urinary Catheter Date of Insertion: 06/08/22 Urinary Catheter Time of Insertion: 09:20 Date Urinary Catheter Removed: 06/09/22 Time Urinary Catheter Discontinued: 15:00 Discharge Data Studies Completed and Pending Completed Studies During Hospitalization Category Date Time Status XR chest 1V portable [id number] Stat Exams 06/08/22 07:53 Completed CV. echo complete* [id number] Routine Ultrasound 06/08/22 09:53 Completed Pending at discharge Category Date Time Status Sputum Culture and Gram Stain Stat Lab 06/08/22 09:52 Uncollected Radiology Impressions Chest X-Ray 06/08/22 07:53 Impression: 1. Patchy bilateral basilar pulmonary opacities which could represent atelectasis and/or pneumonia. 2. Hyperinflation Echocardiogram ?CONCLUSIONS ?1.? This is a technically difficult study with no apical and ?very limited parasternal windows. ?2. Normal left ventricular cavity size. Normal left ventricular ?systolic function.? Left ankle ejection fraction grossly ?estimated at 55%.? This study is inadequate for estimation of ?regional wall motion abnormality. ?3.? No prior similar studies to compare. ?Gabbie Moran MD ?(Electronically Signed) ?Final Date:? ? ? 08 June 2022 ? 16:16 S Laboratory Results WBC 8.6 10^3/uL (4.0-10.0) 06/13/22 05:08 RBC 4.65 10^6/uL (4.1-5.3) 06/13/22 05:08 Hgb 13.8 g/dL (11.7-16.6) 06/13/22 05:08 Hct 41.8 % (42.0-52.0) L 06/13/22 05:08 MCV 89.9 fl (80-94) 06/13/22 05:08 MCH 29.7 pg (28.0-34.0) 06/13/22 05:08 MCHC 33.0 g/dL (30.0-36.0) 06/13/22 05:08 RDW 11.9 % (12.1-15.1) L 06/13/22 05:08 Plt Count 314 10^3/cmm (130-400) 06/13/22 05:08 MPV 9.6 fL (7.4-10.4) 06/13/22 05:08 Neut % (Auto) 52.0 % 06/13/22 05:08 Lymph % (Auto) 34.7 % 06/13/22 05:08 Barnes % (Auto) 11.9 % 06/13/22 05:08 Eos % (Auto) 0.7 % 06/13/22 05:08 Baso % (Auto) 0.1 % 06/13/22 05:08 Neut # (Auto) 4.47 10^3/uL (1.8-7.7) 06/13/22 05:08 Lymph # (Auto) 3.0 10^3/uL (0.8-4.8) 06/13/22 05:08 Barnes # (Auto) 1.0 10^3/uL (0.2-0.9) H 06/13/22 05:08 Eos # (Auto) 0.1 10^3/uL (0.0-0.8) 06/13/22 05:08 Baso # (Auto) 0.0 10^3/uL (0.0-0.1) 06/13/22 05:08 Nucleated RBC % (auto) 0 % 06/13/22 05:08 Total Counted 100 (0-100) 06/10/22 01:44 Atypical Lymphs % 4.0 % (0-5) 06/10/22 01:44 Absolute Neutrophils 6.2 10^3/cmm (1.4-6.5) 06/10/22 01:44 Segmented Neutrophils 79 % 06/10/22 01:44 Abs Segm Neuts (Man) 6.2 10/cmm (1.6-7.1) 06/10/22 01:44 Band Neutrophils 0.0 % 06/10/22 01:44 Abs Band Neuts (Man) 0.0 10^3/cmm (0.0-1.2) 06/10/22 01:44 Absolute Lymphocytes 1.3 10^3/cmm (1.2-3.4) 06/10/22 01:44 Lymphocytes (Manual) 12 % 06/10/22 01:44 Monocytes (Manual) 5.0 % 06/10/22 01:44 Absolute Monocytes 0.4 10^3/cmm (0.1-0.6) 06/10/22 01:44 Eosinophils (Manual) 0 % 06/10/22 01:44 Absolute Eosinophils 0.0 10^3/cmm (0.0-0.7) 06/10/22 01:44 Basophils (Manual) 0.0 % 06/10/22 01:44 Absolute Basophils 0.0 10^3/cmm (0.0-0.2) 06/10/22 01:44 Nucleated RBCs # 0.0 /100WBC 06/13/22 05:08 Platelet Estimate Normal (Normal) 06/10/22 01:44 D-Dimer 0.37 ug/mIFEU (0-0.59) 06/08/22 08:43 Sodium 137 mmol/L (136-145) 06/13/22 05:08 Potassium 3.8 mmol/L (3.5-5.1) 06/13/22 05:08 Chloride 100 mmol/L (98-107) 06/13/22 05:08 Carbon Dioxide 32 mmol/L (22-29) H 06/13/22 05:08 Anion Gap 8.8 (5-19) 06/13/22 05:08 BUN 27 mg/dL (6-20) H 06/13/22 05:08 Creatinine 0.8 mg/dL (0.7-1.2) 06/13/22 05:08 GFR Calculation 102.7 mL/min (90-130) 06/13/22 05:08 Glucose 86 mg/dL (65-115) 06/13/22 05:08 POC Glucose 120 mg/dL (70-110) H 06/10/22 19:46 Estimat Average Glucose 105 06/09/22 01:57 Hemoglobin A1c 5.3 % (4.0-6.0) 06/09/22 01:57 Calculated Osmolality 288 mOsm/kg (285-295) 06/13/22 05:08 Calcium 8.2 mg/dL (8.5-10.5) L 06/13/22 05:08 Phosphorus 4.5 mg/dL (2.5-4.5) 06/09/22 01:57 Magnesium 2.5 mg/dL (1.7-2.3) H 06/09/22 01:57 Iron 25 ug/dL (59-158) L 06/08/22 08:43 TIBC 281 mcg/dl 06/08/22 08:43 % Saturation 8.8 % (20-50) L 06/08/22 08:43 Unsat Iron Binding 256 ug/dL (112-347) 06/08/22 08:43 Total Bilirubin 0.7 mg/dL (0.15-1.2) 06/13/22 05:08 AST 15 U/L (0-40) 06/13/22 05:08 ALT 67 U/L (0-41) H 06/13/22 05:08 Alkaline Phosphatase 48 U/L (40-130) 06/13/22 05:08 C-Reactive Protein 24.2 mg/L (0.0-4.9) H 06/08/22 08:43 NT-Pro-B Natriuret Pep 40 pg/mL (0-125) 06/08/22 08:43 Total Protein 5.4 g/dL (6.6-8.7) L 06/13/22 05:08 Albumin 3.7 g/dL (3.5-5.2) 06/13/22 05:08 Globulin 1.7 g/dL (1.3-4.6) 06/13/22 05:08 Triglycerides 57 mg/dL (0-150) 06/09/22 01:57 Cholesterol 186 mg/dL (0-200) 06/09/22 01:57 LDL Cholesterol, Calc 113 mg/dL (50-129) 06/09/22 01:57 Total VLDL Cholesterol 11 mg/dL (0-30) 06/09/22 01:57 HDL Cholesterol 62 mg/dL (60-100) 06/09/22 01:57 Cholesterol/HDL Ratio 3.00 mg/dL (1.0-5.00) 06/09/22 01:57 Vitamin B12 1107 pg/mL (232-1245) 06/08/22 08:43 Folate > 20.0 ng/mL (4.5-32.2) 06/08/22 08:43 Procalcitonin 0.08 ng/mL (0-0.5) 06/08/22 08:43 TSH 0.28 uIU/mL (0.27-4.20) 06/08/22 08:43 Urine Color Straw (Yellow) 06/08/22 09:18 Urine Appearance Clear (CLEAR) 06/08/22 09:18 Urine pH 6 (5-7) 06/08/22 09:18 Ur Specific [place] 1.010 (1.005-1.030) 06/08/22 09:18 Urine Protein Neg (Negative) 06/08/22 09:18 Urine Glucose (UA) Norm (Normal) 06/08/22 09:18 Urine Ketones 1+ (Negative) H 06/08/22 09:18 Urine Blood Neg (Negative) 06/08/22 09:18 Urine Nitrate Negative (Negative) 06/08/22 09:18 Urine Bilirubin Neg (Negative) 06/08/22 09:18 Urine Urobilinogen Norm mg/dL (Negative) 06/08/22 09:18 Ur Leukocyte Esterase Negative (Negative) 06/08/22 09:18 Ur Random Sodium 106 mmol/L 06/08/22 09:18 Ur Random Potassium 15 mmol/L 06/08/22 09:18 Ur Random Chloride 110 mmol/L 06/08/22 09:18 Urine Opiates Screen Positive ng/mL (Negative) H 06/08/22 09:18 Ur Barbiturates Screen Negative ng/mL (Negative) 06/08/22 09:18 Ur Phencyclidine Scrn Negative ng/mL (Negative) 06/08/22 09:18 Ur Amphetamines Screen Negative ng/mL (Negative) 06/08/22 09:18 U Benzodiazepines Scrn Negative ng/mL (Negative) 06/08/22 09:18 Urine Cocaine Screen Negative ng/mL (Negative) 06/08/22 09:18 U Marijuana (THC) Screen Negative ng/mL (Negative) 06/08/22 09:18 Vitals Last Vital Signs Temp 97.9 F 06/13/22 08:00 Pulse 63 06/13/22 08:00 Resp 18 06/13/22 08:00 BP 98/59 06/13/22 08:00 Pulse Ox 96 06/13/22 08:00 O2 Del Method 06/13/22 08:00 O2 Flow Rate 3 06/13/22 08:00 Discharge Plan Discharge Patient Disposition: Home Health Service Condition: Stable Prescriptions: New ipratropium-albuterol 0.5 mg-3 mg(2.5 mg base)/3 mL solution for nebulization 3 ml inhalation Q8H PRN (Reason: shortness of breath or wheezing) Qty: 90 0RF Pulmicort 0.5 mg/2 mL suspension for nebulization 0.25 mg inhalation Q12H Qty: 60 0RF prednisone 10 mg tablet See Rx Instructions .ROUTE .COMPLEX Qty: 42 0RF Rx Instructions: prednisone 5 mg: take 8 tablets (40 mg) on Day 1; 7 tablets (35 mg) on Day 2; then decrease by 1 tablet every day until finished Augmentin 500-125 mg tablet 1 tab PO BID Qty: 10 0RF levofloxacin 750 mg tablet 750 mg PO Q24H 5 Days Qty: 5 0RF Protonix [address] for susp in packet 40 mg PO DAILY Qty: 14 0RF ondansetron 4 mg tablet,disintegrating 4 mg PO Q8H PRN (Reason: nausea and vomiting) 4 Days Qty: 10 0RF Continued nitroglycerin 0.4 mg tablet, sublingual 0.4 mg SUBLINGUAL Q5M PRN (Reason: Chest Pain) prednisone 5 mg tablet 5 mg PO DAILY 30 Days Qty: 30 6RF Spiriva with HandiHaler 18 mcg capsule, w/inhalation device 1 cap inhalation DAILY 30 Days Qty: 60 6RF Rx Instructions: puncture 1 cap using device; one dose = 2 inhalations citalopram 20 mg tablet 20 mg PO DAILY albuterol sulfate 90 mcg/actuation HFA aerosol inhaler 2 puff INHALATION Q6H PRN (Reason: Shortness Of Breath) roflumilast 500 mcg tablet 500 mcg PO DAILY Discharge Orders: Discharge Order (Routine); Ordered 06/13/22 Ordered By: Brendan King Other Ambulatory Orders: DME: Oxygen (Order) Location: None Selected Ordered By: Brendan King Referrals: [facility] ([facility]) [Outside] Sachin Brown DO [Primary Care Provider] - 4-7 days (Please call TuesdayJun.14 to schedule a hospital follow up appointment. ) DatarChoco MD [Physician] - 1 month Discharge Diet: Cardiac Discharge Activity: Resume usual activity and Increase activity as tolerated Patient Instructions: Prednisone (By mouth), Amoxicillin/Clavulanate Potassium (By mouth), Levofloxacin (By mouth), Budesonide (By breathing), I pratropium/Albuterol (By breathing), Pantoprazole (By mouth), COPD (Chronic Obstructive Pulmonary Disease) (GEN), Opioid Safety Activity Restrictions/Additional Instructions: Take antibiotics Augmentin and Levaquin for next 5 days. Augmentin should not be twice daily and Levaquin will be once daily. Take steroid taper as directed. Continue using oxygen at home as directed. Check pulse ox daily and wean down oxygen keeping saturation over 90%. Continue using nebulizer as discussed. Discharge Attestations Time Spent in Discharge Care*: greater than 30 min Specific Discharge Activities: educating patient, educating and/or supporting family/caregiver, discussing with rehabilitation caseworker/social workers/dc planners, documenting/other paperwork and evaluating patient/reviewing data Status at Discharge: Cognitive status at discharge: cognitively intact , Behavioral status at discharge: cooperative , Functional status at discharge: independent ambulation , Overall status at discharge: patient is progressing back to baseline Quality Metrics Clinical Quality Measures [ No reported AMI, CVA or VTE this stay] Coding Level of Care Code Acute g FW DC note Diagnoses Acute and chronic respiratory failure with hypoxia J96.21 COPD (chronic obstructive pulmonary disease) J44.9 Influenza A J10.1 Chronic chemical pneumonitis J68.0 CAD (coronary artery disease) I25.119 Associated angina: with unspecified form of angina Coronary Disease-Associated Artery/Lesion type: unspecified vessel or lesion type [place] vs. transplanted heart: iliamna heart Anxiety F41.9
[2022-06-13] MEDS: cefTRIAXone 1,000 MG in sodium chloride 0.9% (plus) 50 ML 100 MG IV (10:09)
[2022-06-13] MEDS: enoxaparin 40 mg/0.4 mL Syringe SUBCUT (10:09)
[2022-06-13] MEDS: ALPRAZolam 0.5 mg Tablet PO (10:51)
[2022-06-13] MEDS: ondansetron 2 mg/ML SDV 2 mL 4 MG IVP (10:51)
--- NOTE | 2022-06-13 13:27 | PC.NURSE ---
Discussed discharge with patient and spouse. Went over follow up appointments, new medications and continued medications. Verbalized understanding by both parties.
== END 2022-06-13 13:40 | disposition home health service (06) | DRG 190 ==
LOC: ICU 06-10 01:02 → MEDSURG 06-10 21:19
PROVIDERS: Admitting Provider Family Medicine; PCP Family Medicine; Visit Provider Student in an Organized Health Care Education/Training Program
DX: J44.1 Chronic obstructive pulmonary disease with (acute) exacerbation (principal); J96.21 Acute and chronic respiratory failure with hypoxia; J10.08 Influenza due to other identified influenza virus with other specified pneumonia; J68.4 Chronic respiratory conditions due to chemicals, gases, fumes and vapors; F41.9 Anxiety disorder, unspecified; I25.119 Atherosclerotic heart disease of native coronary artery with unspecified angina pectoris; G47.33 Obstructive sleep apnea (adult) (pediatric); E78.5 Hyperlipidemia, unspecified; Z87.891 Personal history of nicotine dependence
CPT/HCPCS: 36415; 36416; 51702; 71045; 80048; 80053; 80061; 80306; 81003; 82436; 82607; 82746; 82962; 83036; 83540; 83550; 83735; 83880; 84100; 84133; 84145; 84300; 84443; 85007; 85025; 85378; 86140; 86403; 87040; 87449; 87641; 93306; 94640; 94664; 94760; 96372; J0696; J1650; J1940; J2270; J2405; J2930; J3475; J3490; J7614; J7626; J7644; Q0144

== ENCOUNTER → 2022-07-22 09:03 | Outpatient (BNVA) | payer MEDICARE, SELFPAY | PROVIDERS: PCP Family Medicine; Visit Provider Internal Medicine Pulmonary Disease | DX: J44.9 Chronic obstructive pulmonary disease, unspecified (principal); J96.11 Chronic respiratory failure with hypoxia; Z87.891 Personal history of nicotine dependence; Z99.81 Dependence on supplemental oxygen | CPT/HCPCS: 99214 ==

== ENCOUNTER 2022-07-27 13:48 | Outpatient (CLI) | payer MEDICARE, SELFPAY ==
--- NOTE | 2022-07-27 13:56 | CT_ITS ---
WS: [id number] CT CHEST WITHOUT INTRAVENOUS CONTRAST HISTORY: ASSESS RESOLUTION OF PNEUMONIA TECHNIQUE: Contiguous 5 mm axial imaging performed on the thorax. Coronal and sagittal reformats are submitted. All CT scans at [facility] use at least one of these dose optimization techniques: automated exposure control; mA and/or kV adjustment per patient size (includes targeted exams where dose is matched to clinical indication); or iterative reconstruction. CONTRAST: None DLP: 336.39 mGy.cm COMPARISON: Chest radiograph 06/08/2022 Lungs and central airway: Mild pulmonary hyperexpansion. Previously described patchy opacifications i n the lower lung gary radiographically have resolved. There is mild pleural thickening extending al shahrzad the inferior RIGHT major fissure. No pneumonia or endobronchial lesions are identified. Lungs are hyperinflated. Pleura: Normal. No pleural effusion. Heart and pericardium: Normal size heart with no pericardial effusion. Mediastinum and mahsa: No mediastinum or hilar adenopathy. Vessels: Minimal atherosclerosis aorta. Normal size pulmonary artery. Mild coronary artery atheroscle rotic calcification. Most significant burden in the LEFT anterior descending. Chest wall and lower neck: No soft tissue masses. Upper abdomen: Small hiatal hernia. No adrenal mass. Osseous structures: Mild anterior wedging of T9. No retropulsion. CT/CT chest [facility] [id number] IMPRESSION: 1. Interval resolution linear opacifications in the lower lung gary seen on a prior radiograph of 06/08/2022. 2. Hyperexpanded lungs. No pneumonia. 3. Mild coronary artery calcified plaque.
== END 2022-07-27 13:49 | disposition home or self-care (01) ==
PROVIDERS: PCP Family Medicine; Visit Provider Internal Medicine Pulmonary Disease
DX: J18.9 Pneumonia, unspecified organism (principal); I25.10 Atherosclerotic heart disease of native coronary artery without angina pectoris
CPT/HCPCS: 71250

== ENCOUNTER 2022-09-15 10:05 | Outpatient (CLI) | payer MEDICARE, SELFPAY ==
[2022-09-15 10:31] VITALS: PULSE 82; RESP 18; O2SAT 97
[2022-09-15 10:36] VITALS: PULSE 85
== END 2022-09-15 10:06 | disposition home or self-care (01) ==
LOC: RT 10:08
PROVIDERS: PCP Family Medicine; Visit Provider Internal Medicine Pulmonary Disease
DX: J96.21 Acute and chronic respiratory failure with hypoxia (principal)
CPT/HCPCS: 94060; 94618; 94726; 94729; J7613

== ENCOUNTER → 2022-09-20 14:14 | Outpatient (BNVA) | payer MEDICARE, SELFPAY | PROVIDERS: PCP Family Medicine; Visit Provider Internal Medicine | DX: R06.09 Other forms of dyspnea (principal); I25.118 Atherosclerotic heart disease of native coronary artery with other forms of angina pectoris; J44.9 Chronic obstructive pulmonary disease, unspecified; Z87.891 Personal history of nicotine dependence; R07.89 Other chest pain; R06.02 Shortness of breath; I11.9 Hypertensive heart disease without heart failure | CPT/HCPCS: 93005; 99204 ==

== ENCOUNTER 2022-10-19 13:09 | Outpatient (CLI) | payer MEDICARE, SELFPAY ==
--- NOTE | 2022-10-19 13:00 | USCV_ITS ---
Transthoracic Echo w Contrast Sachin Hyde Age: 47 Gender: M : 1975 Exam Date: 10/19/2022 13:30 Ordering Phys: Harvinder oLpez M.D ([email or web address]) Technologist: Exam Location: [facility] Indication: ef BP: 125 / 74 HR: 65 Rhythm: Sinus Technical Quality: Adequate MEASUREMENTS (Male / Female) Normal Values 2D ECHO LV Diastolic Diameter PLAX 4.9 cm 4.2 - 5.9 / 3.9 - 5.3 cm LV Systolic Diameter PLAX 2.8 cm IVS Diastolic Thickness 1.3 cm 0.6 - 1.0 / 0.6 - 0.9 cm IVS Systolic Thickness 1.3 cm LVPW Diastolic Thickness 1.1 cm 0.6 - 1.0 / 0.6 - 0.9 cm LVPW Systolic Thickness 1.7 cm LVOT Diameter 2.1 cm LV Ejection Fraction 2D Teich 74.1 % LV Ejection Fraction MOD 2C 63.7 % LV Ejection Fraction 2C AL 63.4 % LA Diameter 3.4 cm Aorta at Sinotubular Diameter 2.8 cm M-MODE Aortic Annulus Diameter 3.6 cm LA Ao Ratio MM 1.0 MV E Point Septal Separation 1.0 cm DOPPLER AV Peak Velocity 156.0 cm/s LVOT Peak Velocity 109.0 cm/s AV Area Cont Eq vti 2.2 cm squared AV Area Cont Eq pk 2.4 cm squared MV Area PHT 5.0 cm squared Mitral E to A Ratio 1.2 MV E' Velocity 56.5 cm/s Mitral E to MV E' Ratio 6.6 Mitral E to LV E' Lateral Ratio 6.7 Mitral E to LV E' Septal Ratio 6.5 TR Peak Velocity 256.3 cm/s TR Peak Gradient 26.3 mmHg TV Peak E Velocity 108.0 cm/s Right Atrial Pressure 3.0 mmHg Pulmonary Artery Systolic Pressu 29.3 mmHg RV Acceleration Time 0.1 s FINDINGS Left Ventricle Left ventricle is normal in size. LV systolic function is normal with EF of 60-65%. No regional wall motion abnormalities are seen. Diastolic function is normal Right Ventricle Normal in size and function Right Atrium Normal in size Left Atrium Normal in size Mitral Valve Structurally normal mitral valve. Aortic Valve Structurally normal aortic valve. No significant stenosis or regurgitation. Tricuspid Valve Mild tricuspid regurgitation Pulmonic Valve Not well visualized Pericardium Normal Aorta Normal in size IVC Appears to be normal CONCLUSIONS LV systolic function is normal with EF of 60-65% Diastolic function is normal Mild tricuspid regurgitation Compared to prior echocardiogram from 05/2022, no significant changes are seen Harvinder Lopez MD (Electronically Signed) Final Date: 30 Oct 2022 12:49 S
[2022-10-19] MEDS: perflutren protein-a microsphr 0.22 mg/mL SDV 3 mL IV (13:57)
== END 2022-10-19 13:10 | disposition home or self-care (01) ==
PROVIDERS: PCP Family Medicine; Visit Provider Internal Medicine
DX: R06.02 Shortness of breath (principal); I07.1 Rheumatic tricuspid insufficiency
CPT/HCPCS: C8929; Q9956

== ENCOUNTER 2022-10-26 10:02 | Outpatient (CLI) | payer MEDICARE, SELFPAY ==
[2022-10-26 10:33] VITALS: BMI 24.8
--- NOTE | 2022-10-26 10:33 | ECG_ITS ---
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 Interpretive Statements NAME OF STUDY: LEXISCAN SESTAMIBI STRESS TEST INDICATION: [Angina, ] Procedure: At the baseline, the blood pressure was 103/64 mmHg with a heart rate of 72 bpm. The electrocardiogram showed normal sinus rhythm, normal axis with normal ST and T's. The Lexiscan was infused over a period of 20 seconds. A total of 0.4 mg of Lexiscan was infused. The stress phase was continued for a total of 5 minutes. Heart rate was at the end of stress phase was 92 bpm and a blood pressure of 106/74 mmHg. The EKG at the peak infusion revealed normal sinus rhythm with no significant ST-T wave changes. Sestamibi was injected 20 seconds after the Lexiscan infusion. Blood pressure at the end of recovery phase was 105/63 mmHg with a heart rate of 86 bpm. Conclusion: 1. Normal EKG response to Lexiscan infusion 2. No Lexiscan induced chest pain or cardiac arrhythmia. 3. Normal blood pressure and heart rate response. 4. Sestamibi/sestamibi perfusion scan pending; see separate report. Electronically Signed On 10-30-2022 21:21:54 CDT by Harvinder Lopez M.D. [id number]
--- NOTE | 2022-10-26 10:34 | NMCV_ITS ---
NM [place] perf SPECT r/s* [id number] Barrett Sachin Age: 47 Gender: M : 1975 Exam Date: 10/26/2022 10:34 Ordering Phys: Harvinder Lopez M.D ([email or web address]) Technologist: TAMRA Gallardo Exam Location: [facility] Indications: ATHEROSCLEROTIC HEART DISEASE, ANGINA PECTORIS, HYPOXIA STRESS TEST Please see separate stress test report in [facility] for full findings IMAGE PROTOCOL Rest/Stress 1 Lexiscan Day Radiopharmaceutical Dose (mCi) Administration Site Administered by Rest: Tc-99m 10.7 IV TAMRA Devlin Sestamiruma Stress:Tc-99m 32.7 IV TAMRA Devlin Sestamibi Rest: 26-Oct-2022 60 Discovery 630 Stress: 26-Oct-2022 30 Discovery 630 0.4mg Lexiscan. Images obtained in supine and prone position. SPECT RESULTS Technical Quality: Excellent Raw Data Analysis: Normal Image Corrections: No attenuation or motion correction applied Summed Stress Score: 0 Summed Rest Score: 2 Summed Difference Score: 0 PERFUSION FINDINGS There is a medium sized, perfusion defect noted in inferior and apical inferior larsen. This improves on stress imaging. This is likely consistent with attenuation artifact. FUNCTIONAL RESULTS (calculated via Gated SPECT) Stress Image LV EF (%): 71 Stress EDV (mL):119 TID: 1.12 Stress ESV (mL):35 FUNCTIONAL FINDINGS: There is normal left ventricular systolic function. IMPRESSIONS 1. Likely attenuation artifact of inferior and apical inferior larsen. Clinical correlation is needed. 2. LV systolic function is normal Harvinder Lopez MD (Electronically Signed) Final Date: 28 Oct 2022 12:39 S
[2022-10-26 11:55] VITALS: BP 105/63; PULSE 88
[2022-10-26] MEDS: regadenoson 0.4 Mg/5 ml Syringe IVP (11:59)
== END 2022-10-26 10:03 | disposition home or self-care (01) ==
PROVIDERS: PCP Family Medicine; Visit Provider Internal Medicine
DX: R07.9 Chest pain, unspecified (principal); I25.10 Atherosclerotic heart disease of native coronary artery without angina pectoris; R09.02 Hypoxemia
CPT/HCPCS: 36415; 78452; 93017; 96374; A9500; J2785

== ENCOUNTER → 2023-02-18 09:05 | Outpatient (BNVA) | payer MEDICARE, SELFPAY | PROVIDERS: PCP Family Medicine; Visit Provider Internal Medicine Pulmonary Disease | DX: J44.9 Chronic obstructive pulmonary disease, unspecified (principal); J96.11 Chronic respiratory failure with hypoxia; Z87.891 Personal history of nicotine dependence | CPT/HCPCS: 99214 ==

== ENCOUNTER → 2023-03-01 10:11 | Outpatient (BNVA) | payer MEDICARE, SELFPAY | PROVIDERS: PCP Family Medicine; Visit Provider Nurse Practitioner | DX: S46.911A Strain of unspecified muscle, fascia and tendon at shoulder and upper arm level, right arm, initial encounter (principal); X58.XXXA Exposure to other specified factors, initial encounter | CPT/HCPCS: 73030 ==

== ENCOUNTER → 2023-10-13 10:51 | Outpatient (BNVA) | payer MEDICARE, SELFPAY | PROVIDERS: PCP Nurse Practitioner; Visit Provider Nurse Practitioner | DX: J44.9 Chronic obstructive pulmonary disease, unspecified (principal); R07.89 Other chest pain; G89.29 Other chronic pain; J68.0 Bronchitis and pneumonitis due to chemicals, gases, fumes and vapors; R53.83 Other fatigue; E55.9 Vitamin D deficiency, unspecified | CPT/HCPCS: 71046; 80053; 82306; 84443; 85025 ==

== ENCOUNTER 2023-11-23 07:53 | Outpatient (CLI) | payer MEDICARE, SELFPAY ==
--- NOTE | 2023-11-23 08:00 | MR_ITS ---
WS: [id number] MRI THORACIC SPINE noncontrast HISTORY: M54.6 - Pain in thoracic spine COMPARISON: None available. TECHNIQUE: Multiplanar sequences are performed in sagittal and axial planes. Very slight increase in the thoracic kyphosis. T9 compression fracture, 30%. There is a very small am ount of marrow edema at the fracture site suggesting this is probably a subacute fracture. No retropu lsion. There is no additional marrow edema or fracture. Normal signal within the cord. No cord atroph y or enlargement. Mild bilateral facet joint arthritis throughout the mid to lower thoracic spine. No high-grade stenos is. Paravertebral soft tissues are negative. MR/MR thoracic spin wo con* [id number] IMPRESSION: 1. Subacute, T8 30% compression fracture. No retropulsion. 2. Normal signal within the cord. 3. No high-grade central or foraminal stenosis.
== END 2023-11-23 07:54 | disposition home or self-care (01) ==
PROVIDERS: PCP Nurse Practitioner; Visit Provider Nurse Practitioner
DX: S22.070A Wedge compression fracture of T9-T10 vertebra, initial encounter for closed fracture (principal); S22.060A Wedge compression fracture of T7-T8 vertebra, initial encounter for closed fracture
CPT/HCPCS: 72146

== ENCOUNTER 2024-05-14 12:06 | Observation (INO) | payer MEDICARE, SELFPAY ==
[2024-05-14] VITALS (20 sets, daily range): BP systolic 103–137; BP diastolic 66–106; PULSE 78–107; RESP 12–23; TEMP 36.4–36.7; O2SAT 87–100; BMI 24.1
--- NOTE | 2024-05-14 12:08 | XR_ITS ---
WS: [id number] XR chest 1V portable [id number] REASON FOR EXAM: sob FINDINGS: The chest is unchanged compared to 10/13/2023. There are decreased interstitial lung markings in the upper lobes with vague areas of lucency. The josé ngs are hyperexpanded. There is calcified granulomatous disease bilaterally. There is old pleural pericardial reaction bilaterally. No acute pulmonary parenchymal or pleural abnormality is identified. XR/XR chest 1V portable [id number] IMPRESSION: Chronic obstructive lung disease without acute abnormality. Chest stable compar ed to 10/13/2023.
--- NOTE | 2024-05-14 12:08 | ECG_ITS ---
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 Measurements Intervals [place] Rate: 85 P: 71 AR: 169 QRS: -42 QRSD: 94 T: 71 QT: 341 QTc: 407 Interpretive Statements SINUS RHYTHM INDETERMINATE AXIS No previous ECG available for comparison Electronically Signed On 05-15-2024 21:41:42 ENGINEERING AGENT by Harvinder Lopez M.D. [id number]
--- NOTE | 2024-05-14 12:24 | ED_ITS ---
HPI - SOB/Dyspnea 2 General: Chief Complaint: Shortness of Breath/Dyspnea Stated Complaint: low o2 & sob Time Seen by Provider: 05/14/24 12:24 History of Present Illness: HPI Narrative: 49-year-old male presents to the emergen cy room with complaints of shortness of breath and worsening productive cough. Patient has chronic lung disease COPD is normally on 2 and half to 3 L by nasal cannula at rest he is continuing to normal but with any exertion he reports his oxygen sat drops and he becomes extremely more short of breath than usual. He is also noticed a change in his baseline cough he said now has production of discolored sputum denies any hemoptysis. Some mild chest pain with coughing when he gets more severely short of breath no radiation into the neck or back. Associated symptoms: Reports chest pain; Deny abdominal pain or fever(s) Related Data Home Medications Medication Instructions Recorded Confirmed nitroglycerin 0.4 mg sublingual 0.4 mg sublingual Q5M PRN Chest 09/13/19 05/14/24 tablet Pain Petiveria alliacea 400 mg capsule 400 mg PO BID 02/18/23 05/14/24 (Anamu) magnesium glycinate 100 mg (as 100 mg PO DAILY 02/18/23 05/14/24 glycinate) tablet mullein drops See Rx Instructions .Route .COMPLEX 02/18/23 05/14/24 albuterol sulfate 90 mcg/actuation 2 puff inhalation Q6H PRN 05/14/24 05/14/24 aerosol inhaler Shortness Of Breath naproxen 500 mg tablet 500 mg PO BID PRN Pain 05/14/24 05/14/24 Previous Rx's Medication Instructions Recorded budesonide 0.5 mg/2 mL suspension 0.5 mg (2 mL) inhalation BID #120 08/20/22 for nebulization mL prednisone 20 mg tablet See Rx Instructions .Route 05/15/24 .COMPLEX #12 tabs levofloxacin 500 mg tablet 500 mg PO DAILY 3 days #3 tabs 05/16/24 Allergies Allergy/AdvReac Type Severity Reaction Status Date / Time tramadol Allergy Mild ADR-Dizzine Verified 05/14/24 20:11 ss Review of Systems 2 Const: Denies: fever(s) or chills Card: Reports: chest pain Resp: Reports: dyspnea GI: Denies: abdominal pain : Denies: dysuria, urinary frequency or urinary urgency Musc: Denies: neck pain or back pain Skin/Breast: Denies: rash PFSH ED 2 PFSH: Medical History Angina pectoris, unspecified CAD (coronary artery disease) Chest pain COPD (chronic obstructive pulmonary disease) Migraines Hypoxia H/O coronary angiogram GERD (gastroesophageal reflux disease) Depression HTN (hypertension) Angina at rest Hyperlipidemia Anxiety Syndrome X (cardiac) Diastolic dysfunction Seasonal allergies RAJNI (obstructive sleep apnea) Centrilobular emphysema Chronic chemical pneumonitis Family History Father , Age 62 Cancer Lymphoma Denies family history of Diabetes Clotting disorder Chronic kidney disease (CKD) Bleeding disorder Hypertension Thyroid disease Stroke Social History Smoking and tobacco/nicotine status: never used tobacco/nicotine Quit status (tobacco/nicotine): has quit using Year quit tobacco: 2012 - 0.5 PPD x 6 Years Second hand smoke exposure: No Alcohol intake: never Substance/Drug Use: never Lives independently: Yes Household members: spouse Marital status: Current occupational status: disabled Current occupational exposures/hazards: No 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 Do you think of yourself as: Straight/Heterosexual Current gender identity: Male Physical Exam 2 Const: GENERAL APPEARANCE: cooperative ORIENTATION/CONSCIOUSNESS: Yes awake, Yes oriented to person, Yes oriented to place and Yes oriented to time HENMT: COMMON NORMALS: normocephalic, atraumatic and hearing grossly normal bilaterally HEAD & SCALP: normocephalic and atraumatic Resp: COMMON NORMALS: normal respiratory effort, No retractions and No use of accessory muscles AUSCULTATION: wheezes (Mild) expiratory wheezes Cardio: COMMON NORMALS: regular rate, regular rhythm and No murmurs present (Cardio) RATE: regular rate RHYTHM: regular rhythm GI: COMMON NORMALS: Soft to palpation and No hepatosplenomegaly present A USCULTATION: Yes normoactive bowel sounds PALPATION: Yes Soft to palpation, No Tenderness to palpation present (GI), No Guarding due to palpation present (GI) and Yes No hepatosplenomegaly present Extremity: COMMON NORMALS: normal to inspection, capillary refill normal, no clubbing, cyanosis or edema, no calf tenderness and no pedal edema Neuro: SENSORIUM/ORIENTATION: Yes oriented to person, Yes oriented to place and Yes oriented to time Skin: COMMON NORMALS: no rashes or lesions noted GENERAL SKIN EXAM: no rashes or lesions noted Course 2 Vital Signs: Vital signs: Vital Signs Temperature 97.7 F 05/16/24 12:24 Pulse Rate 98 05/16/24 12:24 Respiratory Rate 16 05/16/24 12:24 Blood Pressure 98/60 05/16/24 12:24 Pulse Oximetry 93 05/16/24 12:24 Oxygen Delivery Me thod Nasal Cannula 05/16/24 11:50 Oxygen Flow Rate 3 05/16/24 11:50 Fraction of Inspir ed Oxygen 30 05/15/24 01:53 MDM - SOB/Dyspnea Medical Decision Making Patient has not been using his oxygen regularly. He is prescribed 2 to 3 L from 3 L with ambulation he drops to 88%. He is having a mild COPD exacerbation discussed with hospitalist will place him on observation continue aggressive pulmonary toilet and steroids. His CT and chest x-ray did not show any evidence of pneumonia or PE. Lab Data 05/15/24 05:51 05/15/24 05:51 Labs/Radiology: Radiology Impressions Chest X-Ray 05/14/24 12:08 IMPRESSION: Chronic obstructive lung disease without acute abnormality. Chest stable compared to 10/13/2023. Chest CTA 05/14/24 13:05 IMPRESSION: 1. No evidence of pulmonary embolus Laboratory Results WBC 10.71 10^3/uL (3.29-11.43) 05/14/24 12:31 RBC 4.80 10^6/uL (3.85-5.65) 05/14/24 12:31 Hgb 14.50 g/dL (11.27-16.99) 05/14/24 12:31 Hct 43.7 % (37-53) 05/14/24 12:31 MCV 91.0 fl (82-101) 05/14/24 12:31 MCH 30.2 pg (27-33) 05/14/24 12:31 MCHC 33.2 g/dL (30-55) 05/14/24 12:31 RDW 12.1 % (12.1-15.1) 05/14/24 12:31 Plt Count 237 10^3/cmm (157-399) 05/14/24 12:31 MPV 9.5 fL (7.4-10.4) 05/14/24 12:31 Neut % (Auto) 78.6 % 05/14/24 12:31 Lymph % (Auto) 10.6 % 05/14/24 12:31 [place] % (Auto) 9.2 % 05/14/24 12:31 Eos % (Auto) 0.7 % 05/14/24 12:31 Baso % (Auto) 0.7 % 05/14/24 12:31 Neut # (Auto) 8.42 10^3/uL (1.8-7.7) H 05/14/24 12:31 Lymph # (Auto) 1.1 10^3/uL (0.8-4.8) 05/14/24 12:31 [place] # (Auto) 1.0 10^3/uL (0.2-0.9) H 05/14/24 12:31 Eos # (Auto) 0.1 10^3/uL (0.0-0.8) 05/14/24 12:31 Baso # (Auto) 0.1 10^3/uL (0.0-0.1) 05/14/24 12:31 Nucleated RBC % (auto) 0 % 05/14/24 12: Nucleated RBCs # 0.0 /100WBC 05/14/24 12:31 Specimen Type Arterial 05/14/24 16:33 Sample Site Radial, left 05/14/24 16:33 ABG pH 7.42 (7.35-7.45) 05/14/24 16:33 ABG pCO2 39.4 mmHg (35-45) 05/14/24 16:33 ABG pO2 73.9 mmHg (80.0-100.0) L 05/14/24 16:33 ABG PO2/FiO2 Ratio 230 05/14/24 16:33 ABG HCO3 25.5 mmol/L (22-26) 05/14/24 16:33 ABG O2 Saturation 96.0 05/14/24 16:33 ABG Base Excess 1.0 mmol/L (-2.0-2.0) 05/14/24 16:33 Andrew Test Pos 05/14/24 16:33 A-a O2 Gradient 14.1 mmHg (5-10) H 05/14/24 16:33 Hematocrit 44.4 % (42-52) 05/14/24 16:33 Hgb O2 Saturation 94.5 % (95-100) L 05/14/24 16:33 Carboxyhemoglobin 1.4 %THgb (0.4-20.1) 05/14/24 16:33 Methemoglobin 0.3 % (0.4-1.5) L 05/14/24 16:33 Total Hemoglobin 14.5 g/dL (14-18) 05/14/24 16:33 Sodium 139.0 mmol/L (131-143) 05/14/24 16:33 Potassium 4.0 mmol/L (3.5-5.0) 05/14/24 16:33 Glucose 102.0 mg/dL (70-115) 05/14/24 16:33 Ionized Calcium 1.2 mmol/L (1.1-1.4) 05/14/24 16:33 O2 Delivery Device Nc 05/14/24 16:33 O2 Liters/Min 3.0 % 05/14/24 16:33 FiO2 32.0 % 05/14/24 16:33 Professor Of Medicine ID Monro 05/14/24 16:33 Sodium 141 mmol/L (136-145) 05/14/24 12:31 Potassium 4.3 mmol/L (3.5-5.1) 05/14/24 12:31 Chloride 101 mmol/L (98-107) 05/14/24 12:31 Carbon Dioxide 27 mmol/L (22-29) 05/14/24 12:31 Anion Gap 17.3 (5-19) 05/14/24 12:31 BUN 13 mg/dL (6-20) 05/14/24 12:31 Creatinine 0.8 mg/dL (0.7-1.2) 05/14/24 12:31 GFR Calculation 101.9 mL/min (90-130) 05/14/24 12:31 Glucose 105 mg/dL (65-115) 05/14/24 12:31 Calculated Osmolality 292 mOsm/kg (285-295) 05/14/24 12:31 Calcium 9.3 mg/dL (8.5-10.5) 05/14/24 12:31 Total Bilirubin 0.7 mg/dL (0.15-1.2) 05/14/24 12:31 AST 13 U/L (0-40) 05/14/24 12:31 ALT 10 U/L (0-41) 05/14/24 12:31 Alkaline Phosphatase 85 U/L (40-130) 05/14/24 12:31 C-Reactive Protein 112.1 mg/L (0.0-4.9) H 05/14/24 12:31 NT-Pro-B Natriuret Pep < 36 pg/mL (0-125) 05/14/24 12:31 Total Protein 6.9 g/dL (6.6-8.7) 05/14/24 12:31 Albumin 4.3 g/dL (3.5-5.2) 05/14/24 12:31 Globulin 2.6 g/dL (1.3-4.6) 05/14/24 12:31 Procalcitonin 0.05 ng/mL (0-0.5) 05/14/24 12:31 Procalcitonin 0.05 ng/mL (0-0.5) 05/14/24 12:31 TSH 0.34 uIU/mL (0.27-4.20) 05/14/24 12:31 All radiology interpretation(s) finalized by discharge Discharge Plan Discharge Patient Disposition: Admitted As Inpatient Admit Provider: Kate Nguyen Clinical Impression: Acute exacerbation of chronic obstructive airways disease Condition: Stable Discharge Diet: Regular Discharge Activity: Resume usual activity Coding Level of Care Code ED [employer] Instrument Repairer for Edwigeg Cyndi
[2024-05-14 12:42] LABS: Basophils # 0.1 10^3/uL (0.0-0.1); Basophils % 0.7 %; Eosinophils # 0.1 10^3/uL (0.0-0.8); Eosinophils % 0.7 %; Hematocrit 43.7 % (37-53); Lymphocytes # 1.1 10^3/uL (0.8-4.8); Lymphocytes % 10.6 %; Mean Corpuscular HGB Conc 33.2 g/dL (30-55); Mean Corpuscular Hemoglobin 30.2 pg (27-33); Mean Platelet Volume 9.5 fL (7.4-10.4); Monocytes % 9.2 %; Neutrophils # 8.42 10^3/uL (1.8-7.7); Neutrophils % 78.6 %; Nucleated Red Blood Cells % 0 %; Platelet Count 237 10^3/cmm (157-399); Red Cell Distribution Width 12.1 % (12.1-15.1); White Blood Count 10.71 10^3/uL (3.29-11.43)
--- NOTE | 2024-05-14 12:58 | PC.PHAR ---
Pt states he has not taken any medications except his rescue inhaler and his budesonide for his nebulizer, in several days. Pt has a couple otc herbal medications on his chart.
--- NOTE | 2024-05-14 13:05 | CT_ITS ---
WS: [id number] CTA OF THE CHEST WITH PULMONARY EMBOLISM PROTOCOL TECHNIQUE: High-resolution contrast enhanced CTA of the chest with coronal and sagittal reformatted i mages with pulmonary embolism protocol. MIP images are also reviewed. CLINICAL INFORMATION: dyspnea, tachycardia, hypoxia COMPARISON: CT chest 07/27/2022 DLP: 261.[address] scans at [facility] use at least one of these dose optimization techniques: automated e xposure control; mA and/or kV adjustment per patient size (includes targeted exams where dose is matc hed to clinical indication); or iterative reconstruction. FINDINGS: Proximal main pulmonary arteries are normal. Normal segmental and subsegmental pulmonary arteries. No evidence of pulmonary embolus. Moderate to advanced chronic emphysematous changes. No acute pulmonar y infiltrates. No focal pneumonia or pleural fluid. No mediastinal or hilar lymphadenopathy. Normal c aliber thoracic aorta. Coronary calcification. No axillary lymphadenopathy. Adrenal glands are normal . Tiny esophageal hiatal hernia. Chronic appearing anterior wedging in the midthoracic spine. CT/CT angio chest PE protcl [id number] IMPRESSION: 1. No evidence of pulmonary embolus
[2024-05-14 13:10] LABS: Alanine Aminotransferase 10 U/L (0-41); Albumin Level 4.3 g/dL (3.5-5.2); Alkaline Phosphatase 85 U/L (40-130); Anion Gap 17.3 (5-19); Aspartate Amino Transferase 13 U/L (0-40); Blood Urea Nitrogen 13 mg/dL (6-20); Calcium 9.3 mg/dL (8.5-10.5); Carbon Dioxide 27 mmol/L (22-29); Chloride 101 mmol/L (98-107); Creatinine Clr Calc Pharmacy 121.8429; Globulin 2.6 g/dL (1.3-4.6); Glomerular Filtration Rate 101.9 mL/min (90-130); Glucose 105 mg/dL (65-115); NT Pro B Type Natriuretic Pept < 36 pg/mL (0-125); Osmolality Calculated 292 mOsm/kg (285-295); Potassium 4.3 mmol/L (3.5-5.1); Sodium 141 mmol/L (136-145); Total Bilirubin 0.7 mg/dL (0.15-1.2); Total Protein 6.9 g/dL (6.6-8.7)
[2024-05-14] MEDS: iohexol 350 mg/mL 500 mL Btl (per mL) IV (13:24)
[2024-05-14] MEDS: ipratropium-albuterol 3 mL Neb INHALATION ×2 (13:44→20:58)
[2024-05-14] MEDS: dexamethasone 10 mg/mL INJ IM (13:47)
[2024-05-14 14:03] LABS: C Reactive Protein 112.1 mg/L (0.0-4.9)
[2024-05-14 14:11] LABS: Procalcitonin 0.05 ng/mL (0-0.5)
[2024-05-14 16:46] LABS: ABG PCO2 39.4 mmHg (35-45); ABG PH Result 7.42 (7.35-7.45); Arterial Blood Gas Hematocrit 44.4 % (42-52); Blood Gas Allen Test Pos; Blood Gas Sample Type Arterial; Carboxyhemoglobin 1.4 %THgb (0.4-20.1); HCO3 ABG 25.5 mmol/L (22-26); HGB O2 Sat 94.5 % (95-100); Ionized Calcium Level - ABG 1.2 mmol/L (1.1-1.4); Methemoglobin 0.3 % (0.4-1.5); PO2 ABG 73.9 mmHg (80.0-100.0); Total Hemoglobin 14.5 g/dL (14-18)
[2024-05-14 16:47] LABS: Alveolar-Arterial Oxygen Gradi 14.1 mmHg (5-10); Blood Gas Operator Identificat MONRO; Blood Gas Sample Site Radial, left; Oxygen Device NC; PO2 FiO2 Ratio Arterial Blood 230
[2024-05-14] MEDS: azithromycin 250 mg Tablet 500 MG PO (18:28)
[2024-05-14] MEDS: methylPREDNISolone sod succ 40 mg/mL INJ IVP (18:32)
[2024-05-14] MEDS: heparin 5,000 unit/mL INJ 1 mL 5000 UNIT SUBCUT (18:38)
[2024-05-14 19:05] LABS: Procalcitonin 0.05 ng/mL (0-0.5); Thyroid Stimulating Hormone 0.34 uIU/mL (0.27-4.20)
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
--- NOTE | 2024-05-14 19:40 | PC.NURSE ---
attempted to call report to med surg at 1930, nurse to call back.
--- NOTE | 2024-05-14 19:54 | PC.NURSE ---
report called to [facility] med surg.
[2024-05-14] MEDS: budesonide 0.5 mg/2 mL Neb INHALATION (20:58)
[2024-05-15] VITALS (12 sets, daily range): BP systolic 107–120; BP diastolic 61–74; PULSE 65–103; RESP 12–22; TEMP 36.3–36.5; O2SAT 92–97
[2024-05-15] MEDS: heparin 5,000 unit/mL INJ 1 mL 5000 UNIT SUBCUT ×2 (06:04→18:33)
[2024-05-15] MEDS: methylPREDNISolone sod succ 40 mg/mL INJ IVP ×2 (06:04→18:33)
[2024-05-15 06:32] LABS: Basophils % 0.1 %; Hematocrit 39.6 % (37-53); Lymphocytes % 12.9 %; Mean Corpuscular HGB Conc 33.6 g/dL (30-55); Mean Corpuscular Hemoglobin 29.5 pg (27-33); Mean Corpuscular Volume 87.8 fl (82-101); Mean Platelet Volume 9.9 fL (7.4-10.4); Monocytes # 0.2 10^3/uL (0.2-0.9); Monocytes % 2.4 %; Neutrophils # 6.37 10^3/uL (1.8-7.7); Neutrophils % 84.2 %; Nucleated Red Blood Cells % 0 %; Platelet Count 252 10^3/cmm (157-399); Red Blood Count 4.51 10^6/uL (3.85-5.65); Red Cell Distribution Width 11.9 % (12.1-15.1); White Blood Count 7.57 10^3/uL (3.29-11.43)
[2024-05-15 06:53] LABS: Anion Gap 18.5 (5-19); Blood Urea Nitrogen 18 mg/dL (6-20); Calcium 9.5 mg/dL (8.5-10.5); Carbon Dioxide 25 mmol/L (22-29); Chloride 100 mmol/L (98-107); Creatinine Clr Calc Pharmacy 137.1984; Glomerular Filtration Rate 118.9 mL/min (90-130); Glucose 140 mg/dL (65-115); Magnesium 2.2 mg/dL (1.7-2.3); Osmolality Calculated 292 mOsm/kg (285-295); Potassium 4.5 mmol/L (3.5-5.1); Sodium 139 mmol/L (136-145)
[2024-05-15] MEDS: budesonide 0.5 mg/2 mL Neb INHALATION ×2 (08:14→21:42)
[2024-05-15] MEDS: ipratropium-albuterol 3 mL Neb INHALATION ×4 (08:14→21:42)
--- NOTE | 2024-05-15 08:29 | P.DS_ITS ---
Discharge Providers Date of Admission: 05/14/24 18:29 Date of Discharge: May 15, 2024 Attending Provider at Admission: Kate Nguyen MD Attending Provider at Discharge: Kate Nguyen MD Primary Care Provider: Shelley Mendieta APN Diagnoses at Discharge Discharge Diagnosis (1) Anxiety: Status: Acute (2) Chest pain: Status: Acute Qualifiers: Chest pain type: unspecified Qualified Code(s): R07.9 - Chest pain, unspecified (3) Dyspnea on exertion: Status: Acute (4) Chronic chemical pneumonitis: Status: Acute (5) COPD (chronic obstructive pulmonary disease): Status: Acute (6) Acute and chronic respiratory failure with hypoxia: Status: Acute Reason for Visit Reason for Visit: low o2 & sob Discharge Data Studies Completed and Pending Completed Studies During Hospitalization Category Date Time Status CT angio chest PE protcl [id number] Stat Cat Scan 05/14/24 13:05 Completed XR chest 1V portable [id number] Stat Exams 05/14/24 12:08 Completed Radiology Impressions Chest X-Ray 05/14/24 12:08 IMPRESSION: Chronic obstructive lung disease without acute abnormality. Chest stable compared to 10/13/2023. Chest CTA 05/14/24 13:05 IMPRESSION: 1. No evidence of pulmonary embolus Laboratory Results WBC 7.57 10^3/uL (3.29-11.43) 05/15/24 05:51 RBC 4.51 10^6/uL (3.85-5.65) 05/15/24 05:51 Hgb 13.30 g/dL (11.27-16.99) 05/15/24 05:51 Hct 39.6 % (37-53) 05/15/24 05:51 MCV 87.8 fl (82-101) 05/15/24 05:51 MCH 29.5 pg (27-33) 05/15/24 05:51 MCHC 33.6 g/dL (30-55) 05/15/24 05:51 RDW 11.9 % (12.1-15.1) L 05/15/24 05:51 Plt Count 252 10^3/cmm (157-399) 05/15/24 05:51 MPV 9.9 fL (7.4-10.4) 05/15/24 05:51 Neut % (Auto) 84.2 % 05/15/24 05:51 Lymph % (Auto) 12.9 % 05/15/24 05:51 [place] % (Auto) 2.4 % 05/15/24 05:51 Eos % (Auto) 0.0 % 05/15/24 05:51 Baso % (Auto) 0.1 % 05/15/24 05:51 Neut # (Auto) 6.37 10^3/uL (1.8-7.7) 05/15/24 05:51 Lymph # (Auto) 1.0 10^3/uL (0.8-4.8) 05/15/24 05:51 [place] # (Auto) 0.2 10^3/uL (0.2-0.9) 05/15/24 05:51 Eos # (Auto) 0.0 10^3/uL (0.0-0.8) 05/15/24 05:51 Baso # (Auto) 0.0 10^3/uL (0.0-0.1) 05/15/24 05:51 Nucleated RBC % (auto) 0 % 05/15/24 05:51 Nucleated RBCs # 0.0 /100WBC 05/15/24 05:51 Specimen Type Arterial 05/14/24 16:33 Sample Site Radial, left 05/14/24 16:33 ABG pH 7.42 (7.35-7.45) 05/14/24 16:33 ABG pCO2 39.4 mmHg (35-45) 05/14/24 16:33 ABG pO2 73.9 mmHg (80.0-100.0) L 05/14/24 16:33 ABG PO2/FiO2 Ratio 230 05/14/24 16:33 ABG HCO3 25.5 mmol/L (22-26) 05/14/24 16:33 ABG O2 Saturation 96.0 05/14/24 16:33 ABG Base Excess 1.0 mmol/L (-2.0-2.0) 05/14/24 16:33 Andrew Test Pos 05/14/24 16:33 A-a O2 Gradient 14.1 mmHg (5-10) H 05/14/24 16:33 Hematocrit 44.4 % (42-52) 05/14/24 16:33 Hgb O2 Saturation 94.5 % (95-100) L 05/14/24 16:33 Carboxyhemoglobin 1.4 %THgb (0.4-20.1) 05/14/24 16:33 Methemoglobin 0.3 % (0.4-1.5) L 05/14/24 16:33 Total Hemoglobin 14.5 g/dL (14-18) 05/14/24 16:33 Sodium 139.0 mmol/L (131-143) 05/14/24 16:33 Potassium 4.0 mmol/L (3.5-5.0) 05/14/24 16:33 Glucose 102.0 mg/dL (70-115) 05/14/24 16:33 Ionized Calcium 1.2 mmol/L (1.1-1.4) 05/14/24 16:33 O2 Delivery Device Nc 05/14/24 16:33 O2 Liters/Min 3.0 % 05/14/24 16:33 FiO2 32.0 % 05/14/24 16:33 Meat Blender ID Monro 05/14/24 16:33 Sodium 139 mmol/L (136-145) 05/15/24 05:51 Potassium 4.5 mmol/L (3.5-5.1) 05/15/24 05:51 Chloride 100 mmol/L (98-107) 05/15/24 05:51 Carbon Dioxide 25 mmol/L (22-29) 05/15/24 05:51 Anion Gap 18.5 (5-19) 05/15/24 05:51 BUN 18 mg/dL (6-20) 05/15/24 05:51 Creatinine 0.7 mg/dL (0.7-1.2) 05/15/24 05:51 GFR Calculation 118.9 mL/min (90-130) 05/15/24 05:51 Glucose 140 mg/dL (65-115) H 05/15/24 05:51 Calculated Osmolality 292 mOsm/kg (285-295) 05/15/24 05:51 Calcium 9.5 mg/dL (8.5-10.5) 05/15/24 05:51 Magnesium 2.2 mg/dL (1.7-2.3) 05/15/24 05:51 Total Bilirubin 0.7 mg/dL (0.15-1.2) 05/14/24 12:31 AST 13 U/L (0-40) 05/14/24 12:31 ALT 10 U/L (0-41) 05/14/24 12:31 Alkaline Phosphatase 85 U/L (40-130) 05/14/24 12:31 C-Reactive Protein 112.1 mg/L (0.0-4.9) H 05/14/24 12:31 NT-Pro-B Natriuret Pep < 36 pg/mL (0-125) 05/14/24 12:31 Total Protein 6.9 g/dL (6.6-8.7) 05/14/24 12:31 Albumin 4.3 g/dL (3.5-5.2) 05/14/24 12:31 Globulin 2.6 g/dL (1.3-4.6) 05/14/24 12:31 Procalcitonin 0.05 ng/mL (0-0.5) 05/14/24 12:31 Procalcitonin 0.05 ng/mL (0-0.5) 05/14/24 12:31 TSH 0.34 uIU/mL (0.27-4.20) 05/14/24 12:31 Vitals Last Vital Signs Temp 97.4 F L 05/15/24 04:00 Pulse 73 05/15/24 08:00 Resp 20 H 05/15/24 08:00 BP 107/72 05/15/24 04:00 Pulse Ox 93 05/15/24 08:00 O2 Del Method Nasal Cannula 05/15/24 08:00 O2 Flow Rate 3 05/15/24 08:00 FiO2 30 05/15/24 01:53 Discharge Plan Discharge Patient Disposition: Home Condition: Stable Prescriptions: No Action nitroglycerin 0.4 mg tablet, sublingual 0.4 mg SUBLINGUAL Q5M PRN (Reason: Chest Pain) budesonide 0.5 mg/2 mL suspension for nebulization 0.5 mg inhalation BID Qty: 120 11RF magnesium glycinate 100 mg tablet 100 mg PO DAILY Anamu 400 mg capsule 400 mg PO BID mullein drops See Rx Instructions .ROUTE .COMPLEX Rx Instructions: One-half to one dropperful up to 3 times daily as needed for lung function. Basic directions on bottle. albuterol sulfate 90 mcg/actuation HFA aerosol inhaler 2 puff inhalation Q6H PRN (Reason: Shortness Of Breath) naproxen 500 mg tablet 500 mg PO BID PRN (Reason: Pain) Referrals: Shelley Mendieta FNP [Primary Care Provider] - Patient Instructions: Opioid Safety Discharge Attestations Status at Discharge: Cognitive status at discharge: cognitively intact , Behavioral status at discharge: cooperative , Coding Level of Care Code Acute Code for Chg Fwd Diagnoses Anxiety F41.9 Chest pain, unspecified type R07.9 Chest pain type: unspecified Dyspnea on exertion R06.09 Chronic chemical pneumonitis J68.0 COPD (chronic obstructive pulmonary disease) J44.9 Acute and chronic respiratory failure with hypoxia J96.21
[2024-05-15] MEDS: azithromycin 250 mg Tablet 500 MG PO (08:55)
--- NOTE | 2024-05-15 10:26 | PC.CHAP ---
Pastoral Care Encounter/Spiritual Assessment Type of Contact [] Declined instructional facilitator visit [] Patient/Family/Request visit [] Outpatient visit [] Follow-up visit [] Physician referral [] Code/Alert [x] Routine visit [] Staff referral [] Actively dying [] Patient sleeping [x] Family support [] [] Out of room [] Palliative care [] [] Receiving care in room [] Pre-surgical visit [] Trauma [] Long length of stay [] ICU visit [] Other: Relational/Emotional Strength [x] Patient feels connected with others/family/visitors/staff [] Distress [] Loneliness/isolation [] Abandonment Spirituality of Patient [x] Person of [place]re [] Attends Protestant of their [place] [x] Believes in Prayer [] Reads Bible or Roman Catholic materials [] There are Spiritual issues to be addressed Apprentice Cosmetologist Interventions [x] Prayer [x] Active listening [] Non-anxious presence [x] Spiritual/emotional support [] Crisis/trauma care [] Spiritual counseling [] Bereavement support [] Provided bereavement packet [] Provided Bible/devotional materials [] Provided toy/stuffed animal, coloring book to patient or family member [] Provided Communion [] Anointing/[place] [] Salvation [x] Completed spiritual assessment [] Other: Impact on Illness or Injury [] Angry [] Fearful [] Anxious [] Often cries [] Exhaustion [] Unable to work [] Unable to attend samaritan [] Unable to walk/stand [] Unable to read [] Unable to drive [] Unable to eat/drink [] Unable to sleep [] Unable to be with family [] Patient intubated [] Other: Summary Time spent with patient 5 min
--- NOTE | 2024-05-15 12:34 | P.PN_ITS ---
Subjective 2 Subjective: Seen this morning. No acute events overnight. Patient still subjectively quite short of breath. Does have an appointment with pulmonology coming up this Tuesday. Discussed with him his current respiratory status. He is quite worried that he will end up in the ICU with discharge. He states he has had a pneumonia every time. Discussed with him that there is no evidence of pneumonia at this hospitalization. Vitals/I&O/Wt Last Vital Signs Temp 97.5 F L 05/15/24 12:10 Pulse 103 H 05/15/24 12:10 Resp 17 05/15/24 12:10 BP 117/61 05/15/24 12:10 Pulse Ox 93 05/15/24 12:10 O2 Del Method Nasal Cannula 05/15/24 12:10 O2 Flow Rate 3 05/15/24 11:02 FiO2 30 05/15/24 01:53 05/14/24 05/15/24 05/15/24 22:59 06:59 14:59 Intake Total 350 / 350 350 / 700 240 / 240 Balance 350 / 350 350 / 700 240 / 240 Weight last 48 hrs Weight 77.836 kg Weight 78.653 kg Weight 80.739 kg Physical Exam 2 Narrative: Mild conversational dyspnea, does report shortness of breath. Currently on 3 L Bilateral decreased airflow, bilateral wheezes and rhonchi present. Pleasant and cooperative No active sign of heart failure S1, S2 Nonfocal neuroexam Abdomen soft Data 05/15/24 05:51 05/15/24 05:51 A&P Assessment and plan (1) Anxiety: (2) Chest pain: Qualifiers: Chest pain type: unspecified Qualified Code(s): R07.9 - Chest pain, unspecified (3) Dyspnea on exertion: (4) Chronic chemical pneumonitis: (5) COPD (chronic obstructive pulmonary disease): (6) Acute and chronic respiratory failure with hypoxia: Plan Acute exacerbation of underlying severe airflow obstructive/COPD PFTs consistent with severe COPD pattern, patient is endorsing losing weight, Uses 2 L at baseline Currently on 3 L Conversational dyspnea Will use BiPAP to decrease work of breathing Suspecting viral bronchitis Add azithromycin for anti-inflammatory effect with underlying severe COPD DuoNeb with IV steroids Full code Cardiac diet Anticipating discharge within 48 hours CTA chest negative for PE Procalcitonin is not remarkable Request respiratory panel 05/15/2024 -Continue other 24 hours with IV steroids. ? Will send home on steroid taper in a.m. ? Continue azithromycin x 5 days for anti-inflammatory effect ? Placed on Levaquin x 5 days empirically ? Continue DuoNebs ? Continue budesonide Attestations 2 Medical Necessity Statement*: Requires an additional stay in the hospital for IV steroids. Continue to observe patient. Diagnoses Anxiety F41.9 Chest pain, unspecified type R07.9 Chest pain type: unspecified Dyspnea on exertion R06.09 Chronic chemical pneumonitis J68.0 COPD (chronic obstructive pulmonary disease) J44.9 Acute and chronic respiratory failure with hypoxia J96.21
[2024-05-15] MEDS: levofloxacin-dextrose 5 % 500 MG/100 ML PREMIX 100 MG IV (13:33)
[2024-05-16 04:00] VITALS: BP 106/61; PULSE 75; RESP 17; TEMP 36.6; O2SAT 94
[2024-05-16] MEDS: methylPREDNISolone sod succ 40 mg/mL INJ IVP (06:22)
[2024-05-16] MEDS: heparin 5,000 unit/mL INJ 1 mL 5000 UNIT SUBCUT (06:22)
[2024-05-16 07:51] VITALS: BP 108/71; PULSE 84; RESP 15; TEMP 36.6; O2SAT 93
[2024-05-16] MEDS: ipratropium-albuterol 3 mL Neb INHALATION ×2 (08:49→11:49)
[2024-05-16] MEDS: budesonide 0.5 mg/2 mL Neb INHALATION (08:49)
[2024-05-16 08:50] VITALS: PULSE 96; RESP 18; O2SAT 93
[2024-05-16] MEDS: azithromycin 250 mg Tablet 500 MG PO (08:58)
[2024-05-16 11:16] VITALS: BP 98/60; PULSE 83; RESP 15; TEMP 36.5; O2SAT 93
[2024-05-16 11:50] VITALS: PULSE 98; RESP 16; O2SAT 93
--- NOTE | 2024-05-16 11:58 | P.DS_ITS ---
Discharge Providers Date of Admission: 05/14/24 18:29 Date of Discharge: May 16, 2024 Attending Provider at Admission: Kate Nguyen MD Attending Provider at Discharge: Kate Nguyen MD Primary Care Provider: Shelley Mendieta APN Diagnoses at Discharge Discharge Diagnosis (1) Anxiety: Status: Acute (2) Chest pain: Status: Resolved Qualifiers: Chest pain type: unspecified Qualified Code(s): R07.9 - Chest pain, unspecified (3) Dyspnea on exertion: Status: Resolved (4) Chronic chemical pneumonitis: Status: Acute (5) COPD (chronic obstructive pulmonary disease): Status: Acute (6) Acute and chronic respiratory failure with hypoxia: Status: Resolved Reason for Visit Reason for Visit: low o2 & sob Hospital Course Hospital Course Admitted and treated for COPD exacerbation. Discharged home on steroid taper Levaquin and azithromycin. Wanted to midnight stay secondary to severe wheezing and rhonchi. At time of discharge lungs quite clear to auscultation. Patient to follow-up with pulmonology after discharge. He has an upcoming appointment on 05/18. CTA chest ruled out PE and pneumonia on admission. Physical Exam Narrative: No conversational dyspnea no shortness of breath no acute distress. Currently on 3 L Clear to auscultation bilaterally with diminished at bases. Pleasant and cooperative No active sign of heart failure S1, S2 Nonfocal neuroexam Abdomen soft Discharge Data Studies Completed and Pending Completed Studies During Hospitalization Category Date Time Status CT angio chest PE protcl [id number] Stat Cat Scan 05/14/24 13:05 Completed XR chest 1V portable [id number] Stat Exams 05/14/24 12:08 Completed Radiology Impressions Chest X-Ray 05/14/24 12:08 IMPRESSION: Chronic obstructive lung disease without acute abnormality. Chest stable compared to 10/13/2023. Chest CTA 05/14/24 13:05 IMPRESSION: 1. No evidence of pulmonary embolus Laboratory Results WBC 7.57 10^3/uL (3.29-11.43) 05/15/24 05:51 RBC 4.51 10^6/uL (3.85-5.65) 05/15/24 05:51 Hgb 13.30 g/dL (11.27-16.99) 05/15/24 05:51 Hct 39.6 % (37-53) 05/15/24 05:51 MCV 87.8 fl (82-101) 05/15/24 05:51 MCH 29.5 pg (27-33) 05/15/24 05:51 MCHC 33.6 g/dL (30-55) 05/15/24 05:51 RDW 11.9 % (12.1-15.1) L 05/15/24 05:51 Plt Count 252 10^3/cmm (157-399) 05/15/24 05:51 MPV 9.9 fL (7.4-10.4) 05/15/24 05:51 Neut % (Auto) 84.2 % 05/15/24 05:51 Lymph % (Auto) 12.9 % 05/15/24 05:51 [place] % (Auto) 2.4 % 05/15/24 05:51 Eos % (Auto) 0.0 % 05/15/24 05:51 Baso % (Auto) 0.1 % 05/15/24 05:51 Neut # (Auto) 6.37 10^3/uL (1.8-7.7) 05/15/24 05:51 Lymph # (Auto) 1.0 10^3/uL (0.8-4.8) 05/15/24 05:51 [place] # (Auto) 0.2 10^3/uL (0.2-0.9) 05/15/24 05:51 Eos # (Auto) 0.0 10^3/uL (0.0-0.8) 05/15/24 05:51 Baso # (Auto) 0.0 10^3/uL (0.0-0.1) 05/15/24 05:51 Nucleated RBC % (auto) 0 % 05/15/24 05:51 Nucleated RBCs # 0.0 /100WBC 05/15/24 05:51 Specimen Type Arterial 05/14/24 16:33 Sample Site Radial, left 05/14/24 16:33 ABG pH 7.42 (7.35-7.45) 05/14/24 16:33 ABG pCO2 39.4 mmHg (35-45) 05/14/24 16:33 ABG pO2 73.9 mmHg (80.0-100.0) L 05/14/24 16:33 ABG PO2/FiO2 Ratio 230 05/14/24 16:33 ABG HCO3 25.5 mmol/L (22-26) 05/14/24 16:33 ABG O2 Saturation 96.0 05/14/24 16:33 ABG Base Excess 1.0 mmol/L (-2.0-2.0) 05/14/24 16:33 Andrew Test Pos 05/14/24 16:33 A-a O2 Gradient 14.1 mmHg (5-10) H 05/14/24 16:33 Hematocrit 44.4 % (42-52) 05/14/24 16:33 Hgb O2 Saturation 94.5 % (95-100) L 05/14/24 16:33 Carboxyhemoglobin 1.4 %THgb (0.4-20.1) 05/14/24 16:33 Methemoglobin 0.3 % (0.4-1.5) L 05/14/24 16:33 Total Hemoglobin 14.5 g/dL (14-18) 05/14/24 16:33 Sodium 139.0 mmol/L (131-143) 05/14/24 16:33 Potassium 4.0 mmol/L (3.5-5.0) 05/14/24 16:33 Glucose 102.0 mg/dL (70-115) 05/14/24 16:33 Ionized Calcium 1.2 mmol/L (1.1-1.4) 05/14/24 16:33 O2 Delivery Device Nc 05/14/24 16:33 O2 Liters/Min 3.0 % 05/14/24 16:33 FiO2 32.0 % 05/14/24 16:33 Human Performance Technologist ID [place] 05/14/24 16:33 Sodium 139 mmol/L (136-145) 05/15/24 05:51 Potassium 4.5 mmol/L (3.5-5.1) 05/15/24 05:51 Chloride 100 mmol/L (98-107) 05/15/24 05:51 Carbon Dioxide 25 mmol/L (22-29) 05/15/24 05:51 Anion Gap 18.5 (5-19) 05/15/24 05:51 BUN 18 mg/dL (6-20) 05/15/24 05:51 Creatinine 0.7 mg/dL (0.7-1.2) 05/15/24 05:51 GFR Calculation 118.9 mL/min (90-130) 05/15/24 05:51 Glucose 140 mg/dL (65-115) H 05/15/24 05:51 Calculated Osmolality 292 mOsm/kg (285-295) 05/15/24 05:51 Calcium 9.5 mg/dL (8.5-10.5) 05/15/24 05:51 Magnesium 2.2 mg/dL (1.7-2.3) 05/15/24 05:51 Total Bilirubin 0.7 mg/dL (0.15-1.2) 05/14/24 12:31 AST 13 U/L (0-40) 05/14/24 12:31 ALT 10 U/L (0-41) 05/14/24 12:31 Alkaline Phosphatase 85 U/L (40-130) 05/14/24 12:31 C-Reactive Protein 112.1 mg/L (0.0-4.9) H 05/14/24 12:31 NT-Pro-B Natriuret Pep < 36 pg/mL (0-125) 05/14/24 12:31 Total Protein 6.9 g/dL (6.6-8.7) 05/14/24 12:31 Albumin 4.3 g/dL (3.5-5.2) 05/14/24 12:31 Globulin 2.6 g/dL (1.3-4.6) 05/14/24 12:31 Procalcitonin 0.05 ng/mL (0-0.5) 05/14/24 12:31 Procalcitonin 0.05 ng/mL (0-0.5) 05/14/24 12:31 TSH 0.34 uIU/mL (0.27-4.20) 05/14/24 12:31 Vitals Last Vital Signs Temp 97.7 F 05/16/24 11:16 Pulse 98 05/16/24 11:50 Resp 16 05/16/24 11:50 BP 98/60 05/16/24 11:16 Pulse Ox 93 05/16/24 11:50 O2 Del Method Nasal Cannula 05/16/24 11:50 O2 Flow Rate 3 05/16/24 11:50 FiO2 30 05/15/24 01:53 Discharge Plan Discharge Patient Disposition: Home Condition: Stable Prescriptions: New azithromycin 250 mg Tablet 500 mg PO DAILY 3 Days Qty: 6 0RF prednisone 20 mg tablet See Rx Instructions .ROUTE .COMPLEX Qty: 12 0RF Rx Instructions: 40 mg x 3 days 30 mg x 2 days 20 mg x 2 days 10 mg x 2 days levofloxacin 500 mg tablet 500 mg PO DAILY 3 Days Qty: 3 0RF Continued nitroglycerin 0.4 mg tablet, sublingual 0.4 mg SUBLINGUAL Q5M PRN (Reason: Chest Pain) budesonide 0.5 mg/2 mL suspension for nebulization 0.5 mg inhalation BID Qty: 120 11RF magnesium glycinate 100 mg tablet 100 mg PO DAILY Anamu 400 mg capsule 400 mg PO BID mullein drops See Rx Instructions .ROUTE .COMPLEX Rx Instructions: One-half to one dropperful up to 3 times daily as needed for lung function. Basic directions on bottle. albuterol sulfate 90 mcg/actuation HFA aerosol inhaler 2 puff inhalation Q6H PRN (Reason: Shortness Of Breath) naproxen 500 mg tablet 500 mg PO BID PRN (Reason: Pain) Discharge Orders: Discharge Order (Routine); Ordered 05/16/24 Ordered By: Kate Nguyen Other Ambulatory Orders: DME: Oxygen (Order) Location: None Selected Ordered By: Kate Nguyen Referrals: Shelley Mendieta FNP [Primary Care Provider] - 05/22/24 11:00 am () Discharge Diet: Regular Discharge Activity: Resume usual activity Patient Instructions: COPD, Prednisone (By mouth), Azithromycin (By mouth), Levofloxacin (By mouth) (Levaquin, Levaquin Leva-cristhian), Chest Pain (GEN), Opioid Safety Discharge Attestations Time Spent in Discharge Care*: greater than 30 min Status at Discharge: Cognitive status at discharge: cognitively intact , Behavioral status at discharge: cooperative , Quality Metrics Clinical Quality Measures [ No reported AMI, CVA or VTE this stay] Coding Level of Care Code Acute Code for Chg Fwd Diagnoses Anxiety F41.9 Chest pain, unspecified type R07.9 Chest pain type: unspecified Dyspnea on exertion R06.09 Chronic chemical pneumonitis J68.0 COPD (chronic obstructive pulmonary disease) J44.9 Acute and chronic respiratory failure with hypoxia J96.21
[2024-05-16 12:24] VITALS: BP 98/60; PULSE 98; RESP 16; TEMP 36.5; O2SAT 93
== END 2024-05-16 13:27 | disposition home or self-care (01) ==
LOC: ER 12:28 → MEDSURG 18:29
PROVIDERS: Emergency Medicine; Admitting Provider Internal Medicine; Emergency Provider Family Medicine; PCP Nurse Practitioner; Visit Provider Internal Medicine
DX: J44.1 Chronic obstructive pulmonary disease with (acute) exacerbation (principal); F41.9 Anxiety disorder, unspecified; R06.09 Other forms of dyspnea; J68.0 Bronchitis and pneumonitis due to chemicals, gases, fumes and vapors; J96.21 Acute and chronic respiratory failure with hypoxia; Z99.81 Dependence on supplemental oxygen; I25.10 Atherosclerotic heart disease of native coronary artery without angina pectoris; F32.A Depression, unspecified; I10 Essential (primary) hypertension; E78.5 Hyperlipidemia, unspecified; G47.33 Obstructive sleep apnea (adult) (pediatric)
CPT/HCPCS: 36415; 36600; 71045; 71275; 80048; 80051; 80053; 82330; 82805; 83735; 83880; 84145; 84443; 85025; 86140; 93005; 94640; 94660; 94760; 96365; 96372; 96375; 99285; G0378; J1100; J1644; J1956; J2919; J7626; Q0144

== ENCOUNTER 2024-05-28 09:04 | Outpatient (CLI) | payer MEDICARE, SELFPAY ==
--- NOTE | 2024-05-28 09:15 | US_ITS ---
WS: [id number] Complete ABDOMINAL ULTRASOUND HISTORY: R14.0 - Abdominal distension (gaseous) COMPARISON: None available. Liver: 16.9 cm in length. Normal size liver and echogenicity. No bile duct dilatation or mass. Portal Vein: Normal hepatopetal flow with monophasic waveform. Gallbladder: Normally distended gallbladder with no stones or wall thickening. CBD: 0.3 cm Pancreas: Poorly visualized. Right kidney: 10.3 cm x 5.1 x 5.3 cm. Cortex:1.3 cm. Normal size and echogenicity. No hydronephrosis or mass. Left kidney: 10.2 cm x 4.6 cm x 5.4 cm. Cortex: 1.2 cm. Normal size kidney. Hyperechoic mass in the mid to lower LEFT kidney centered in the cortex. Hyperech oic mass measures 0.9 x 1.1 x 1.4 cm. This is probably an angiomyolipoma. No increased vascularity. Spleen: 9.7 cm. Normal size and echogenicity. Aorta and IVC: Unremarkable abdominal aorta and IVC. US/US abdomen complete* [id number] Impression: 1. Normal gallbladder. 2. No renal obstruction. 3. No hepatobiliary obstruction. 4. LEFT renal hyperechoic mass, maximum diameter of 1.4 cm. 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 A small portion of renal cell carcinomas may be hype rechoic. Consider follow-up LEFT renal ultrasound in 6 months. This will help d ocument stability and confirm stable mass.
== END 2024-05-28 09:05 | disposition home or self-care (01) ==
LOC: RAD 09:05
PROVIDERS: PCP Nurse Practitioner; Visit Provider Nurse Practitioner
DX: D41.02 Neoplasm of uncertain behavior of left kidney (principal); R14.0 Abdominal distension (gaseous)
CPT/HCPCS: 76700

== ENCOUNTER → 2024-06-14 10:35 | Outpatient (BNVA) | payer MEDICARE, SELFPAY | PROVIDERS: PCP Nurse Practitioner; Referring Provider Nurse Practitioner; Visit Provider Student in an Organized Health Care Education/Training Program | DX: R03.0 Elevated blood-pressure reading, without diagnosis of hypertension (principal); K92.89 Other specified diseases of the digestive system | CPT/HCPCS: 99203 ==